=== PATIENT | male | born 1955 | race Caucasian/White ===

== ENCOUNTER 2016-08-09 04:03 | Observation (INO) | payer BC ==
[2016-08-09 04:34] LABS: Basophils % (A) 0 %; CH 31.5; CHCM 33.2; Eosinophils # (A) 0.2 k/uL (0-0.7); Eosinophils % (A) 3 %; HCT 48.1 % (39.0-53.0); HDW 2.29; HGB 15.6 gm/dL (13.0-17.5); Luc # (Auto) 0.24; Luc % (Auto) 4; Lymphocytes # (A) 1.9 k/uL (1.0-4.8); Lymphocytes % (A) 29 %; MCHC 32.5 g/dL (31.0-37.0); MCV 95.3 fL (80.0-100.0); Mean Platelet Volume 8.5; Monocytes # (A) 0.5 k/uL (0-1.0); Monocytes % (A) 8 %; Neutrophils # (A) 3.7 k/uL (1.3-7.7); Neutrophils % (A) 56 %; RBC 5.04 m/uL (4.30-5.90); RDW 12.6 % (11.5-15.5); WBC 6.6 k/uL (3.8-10.6); WBC (Perox) 6.63
[2016-08-09 04:43] LABS: ALT 29 U/L (21-72); AST 28 U/L (17-59); Alkaline Phosphatase 93 U/L (38-126); Anion Gap 11 mmol/L; Blood Urea Nitrogen 18 mg/dL (9-20); Calcium 10.1 mg/dL (8.4-10.2); Carbon Dioxide 26 mmol/L (22-30); Chloride 105 mmol/L (98-107); Glucose 85 mg/dL (74-99); Magnesium 2.1 mg/dL (1.6-2.3); Non-African American GFR(MDRD) >60 (>60 ml/min/1.73 sqM); Potassium 4.7 mmol/L (3.5-5.1); Sodium 142 mmol/L (137-145); Total Bilirubin 0.6 mg/dL (0.2-1.3); Total Protein 7.6 g/dL (6.3-8.2)
--- NOTE | 2016-08-09 05:23 | XR ---
EXAM: XR Chest, 1 View. CLINICAL HISTORY: Chest pain. TECHNIQUE: Frontal view of the chest. COMPARISON: Chest radiograph dated 10/09/14. FINDINGS: Limitations: The left costophrenic angle is incompletely imaged. Lungs: No airspace consolidation. There is improved aeration at the left lung base. Pleural space: No significant pleural effusion. No pneumothorax. Heart: Normal cardiac silhouette. Bones/joints: Thoracic scoliosis. Degenerative changes at the left acromioclavicular joint. IMPRESSION: No acute abnormality detected.
[2016-08-09] MEDS ORDERED: NITROGLYCERIN SL TABS 0.4 MG TAB SUBLINGUAL PRN (06:27)
--- NOTE | 2016-08-09 06:27 | ED ---
Chest Pain HPI - General Chief Complaint: Chest Pain Stated Complaint: chest/abd pain Time Seen by Provider: 08/09/16 04:15 Source: patient, family Mode of arrival: ambulatory Limitations: no limitations - History of Present Illness Initial Comments: This patient is 61-year-old man who presents to be evaluated for left-sided chest pain that has been going on since approximately 10 PM. The patient states he was at rest when it started. The pain is constant, aching, and he has not noticed any worsening or relieving factors. He is currently moderate intensity. Patient denies any associated symptoms. He does note that he has had similar pains intermittently going back maybe up to 10 years. Patient states that he did have a heart catheterization but this was he believes 10-15 years ago. MD Complaint: chest pain Onset/Timin -: hour(s) Onset: during rest Pain Location: left chest Pain Radiation: none Severity: moderate Quality: aching Consistency: intermittent Improves With: nothing Worsens With: nothing Treatments Prior to Arrival: none - Related Data Home Medications Medication Instructions Recorded Confirmed No Known Home Medications [No 08/09/16 08/09/16 Known Home Medications] Allergies Allergy/AdvReac Type Severity Reaction Status Date / Time No Known Allergies Allergy Verified 08/09/16 04:09 Review of Systems ROS Statement: Those systems with pertinent positive or pertinent negative responses have been documented in the HPI. ROS Other: All systems not noted in ROS Statement are negative. Constitutional: Denies: fever, chills Respiratory: Denies: cough, dyspnea, hemoptysis Cardiovascular: Reports: chest pain. Denies: palpitations, dyspnea on exertion , orthopnea, edema, syncope Gastrointestinal: Denies: abdominal pain, vomiting Genitourinary: Denies: dysuria Musculoskeletal: Denies: back pain Skin: Denies: rash Neurological: Denies: headache EKG Findings - EKG Results: EKG: interpreted by ERMD, sinus rhythm, normal axis, normal QRS, normal ST/T, no acute changes EKG shows: bradycardia (Rate approximately 57 bpm) Past Medical History Past Medical History: Sleep Apnea/CPAP/BIPAP History of Any Multi-Drug Resistant Organisms: None Reported Past Surgical History: Appendectomy Additional Past Surgical History / Comment(s): Irregular Heart rate, Past Psychological History: No Psychological Hx Reported Smoking Status: Never smoker Past Alcohol Use History: Occasional Past Drug Use History: None Reported General Exam Limitations: no limitations General appearance: alert, in no apparent distress Head exam: Present: atraumatic, normocephalic, normal inspection Eye exam: Present: normal appearance. Absent: scleral icterus, conjunctival injection Neck exam: Present: normal inspection Respiratory exam: Present: normal lung sounds bilaterally. Absent: respiratory distress, wheezes, rales, rhonchi, chest wall tenderness, accessory muscle use, decreased breath sounds, prolonged expiratory Cardiovascular Exam: Present: regular rate, normal rhythm, normal heart sounds. Absent: systolic murmur, diastolic murmur, rubs, gallop GI/Abdominal exam: Present: soft. Absent: distended, tenderness, guarding, rebound Extremities exam: Present: normal inspection, normal capillary refill. Absent: pedal edema, calf tenderness Back exam: Absent: CVA tenderness (R), CVA tenderness (L) Skin exam: Present: warm, dry, intact, normal color. Absent: rash Course Vital Signs 08/09/16 08/09/16 08/09/16 04:05 04:09 04:45 Temperature 97.5 F L Pulse Rate 61 63 59 L Respiratory 20 18 18 Rate Blood Pressure 140/92 136/86 122/75 O2 Sat by Pulse 97 99 99 Oximetry 08/09/16 05:45 Temperature Pulse Rate 62 Respiratory 18 Rate Blood Pressure 123/80 O2 Sat by Pulse 99 Oximetry Disposition Clinical Impression: Chest pain Disposition: ADMITTED IP TO THIS [facility] Condition: Good Referrals: Elias Christian MD [Primary Care Provider] - 1-2 days
[2016-08-09 08:32] VITALS: RESP 16
--- NOTE | 2016-08-09 10:42 | CONS ---
DATE OF CONSULTATION: Mr. Preston is a 61-year-old gentleman who is admitted with the complaint of chest pain. Patient gives a history that after the dinner yesterday, he had mild chest discomfort in the left anterior part of the chest. It was kind of aching pain, lasting only for a few minutes. Pain was not associated with any symptoms of shortness of breath. Patient subsequently came to the emergency room and is admitted. This patient usually walks 3 to 4 miles every day for 4 days a week. He has not been having any exertional chest pain. He had a cardiac catheterization done about 15 years ago which was normal. Patient has a borderline hypertension. There is no history of diabetes. He does not know about his cholesterol and the patient does not smoke. Past medical history includes history of appendectomy, history of cardiac catheterization in the past and history of irregular heartbeat. The review of systems is otherwise unremarkable. Physical examination reveals a 61-year-old gentleman who is thinly built, does not appear to be in any acute distress. Blood pressure is 137-83 mmHg. HEENT examination is negative. Neck is supple. There is no increase in jugular venous pressure. Both the carotid pulses are felt. There is no bruit. Chest is symmetrical. HEART: The PMI is not felt. First and second heart sounds are normal. There is no evidence of any murmur. Lungs are clinically clear to auscultation and percussion. Abdomen is soft. Liver and spleen are not enlarged. Bowel sounds are heard. EXTREMITIES: Peripheral pulsations are 2+. EKG shows a normal sinus rhythm without any acute ischemic changes. First set of troponin is normal. FINAL IMPRESSION: This patient's chest pains are atypical pain, two EKGs are normal. We will repeat the second troponin. If the troponin is normal, we will schedule the patient for a stress echocardiographic study.
[2016-08-09 11:28] LABS: Creatine Kinase 67 U/L (55-170)
[2016-08-09 11:41] LABS: Creatine Kinase MB 0.3 ng/mL (0.0-2.4); Troponin I <0.012 ng/mL (0.000-0.034)
--- NOTE | 2016-08-09 14:34 | ECHOS ---
DATE OF SERVICE: 08/09/2016 AGE: 61Y SEX: M HT: 72" WT: 192 lbs. Protocol Prudencio: X Others: Stress Echo Stage: IV Dur. of Exercise: 9:53 *Heart Rate Blood Pressure *Rest: 79 Rest: 131/46 * *Max. Achieved: 140 Maximum BP: 137/65 85% PMHR: 134 100% PMHR: 158 *METS: 11.3 INDICATIONS: Chest pain. MEDICATIONS: Aspirin 81 mg. The patient was exercised for a total period of 9 minutes and 53 seconds. Peak heart rate of 140 was achieved. Maximum blood pressure of 137/65 mmHg was noted. Resting EKG shows normal sinus rhythm with normal MO interval and QRS duration and normal ST-T waves. During exercise, J-point depression with upsloping ST segments were noted. Occasional PVCs were noted. The baseline echocardiographic images reveal a normal left ventricular chamber size with normal left ventricular systolic function. In the immediate postexercise period, normal increase in the wall thickness and contractility is noted. FINAL IMPRESSION: 1. This stress echocardiographic study is negative for stress-induced ischemia. 2. Occasional premature ventricular contractions are noted. 3. Exercise tolerance is normal.
--- NOTE | 2016-08-09 14:57 | HP ---
HISTORY AND PHYSICAL/DISCHARGE SUMMARY: DATE OF ADMISSION: Patient is a 61-year-old came in with left-sided chest pain that started yesterday evening at 10 p.m. Patient's chest pain is nonexertional. About 1/20 in severity in the epigastric area and retrosternal area. Pressure-like sensation, no radiation, not associated with diaphoresis. No nausea, no lightheadedness, no shortness of breath. Patient denied any palpitations and patient denied any lightheadedness, diaphoresis. Patient denied any fever, chills, cough, runny nose. Patient denied any cough at this point of time and patient's chest pain has completely resolved and this pain normally last 10 minutes. This started when he was eating and otherwise, patient has on and off of this pain, normally no with food and patient's chest pain is nonpleuritic in nature. REVIEW OF SYSTEMS: CARDIOVASCULAR: As described in HPI. CONSTITUTIONAL: No fever, no malaise, no fatigue. HEENT: No recent visual problems or hearing problems. Denied any sore throat. PULMONARY: No shortness of breath, no cough, no hemoptysis. GASTROINTESTINAL: No diarrhea, no nausea, no vomiting, no abdominal pain. Normoactive bowel sounds. NEUROLOGICAL: No headaches, no weakness, no numbness. HEMATOLOGICAL: Denies any bleeding or petechiae. GENITOURINARY: Denies any burning micturition, frequency, or urgency. MUSCULOSKELETAL/RHEUMATOLOGICAL: Denies any joint pain, swelling, or any muscle pain. ENDOCRINE: Denies any polyuria or polydipsia. The rest of the 14 point review of systems is negative. PAST MEDICAL HISTORY: Significant for sleep apnea. Patient is only uses aspirin at home. Appendectomy in the past. SOCIAL HISTORY: Denied any smoking, alcohol abuse or any drug abuse. FAMILY HISTORY: Denied any family history of premature coronary artery disease. Family history is significant for dementia and his father at age 90. PHYSICAL EXAMINATION: Temperature 98.5, pulse of 66, respiratory rate of 16, blood pressure is 119/70. Saturating at 99% on 2 L of O2 nasal cannula. GENERAL: The patient is alert and oriented x3, not in any acute distress. Well developed, well nourished. HEENT: Pupils are round and equally reacting to light. EOMI. No scleral icterus. No conjunctival pallor. Normocephalic, atraumatic. No pharyngeal erythema. No thyromegaly. CARDIOVASCULAR: S1 and S2 present. No murmurs, rubs, or gallops. PULMONARY: Chest is clear to auscultation, no wheezing or crackles. ABDOMEN: Soft, nontender, nondistended, normoactive bowel sounds. No palpable organomegaly. MUSCULOSKELETAL: No joint swelling or deformity. EXTREMITIES: No cyanosis, clubbing, or pedal edema. NEUROLOGICAL: Gross neurological examination did not reveal any focal deficits. SKIN: No rashes. LABORATORY DATA: CBC, CMP essentially within normal limits and d-dimer is negative. ASSESSMENT AND PLAN: 1. Chest pain, atypical in nature. Patient was evaluated by Cardiology. EKG and troponins are negative. A chest x-ray did not show any pneumonic process. Patient is admitted for rule out unstable angina and Cardiology is recommending stress test. After stress test if it is negative, patient will be discharged. I cannot completely rule out gastritis because of which I am giving him 14 days of empiric omeprazole. 2. Sleep apnea. He can use his CPAP machine at home and patient will follow with his primary care physician, Dr. Elias Christian in 3 to 7 days. Activity as tolerated. Regular diet.
[2016-08-09 15:22] VITALS: BP 127/67; PULSE 76; TEMP 98
[2016-08-10] MEDS ORDERED: ASPIRIN 325 MG TAB PO SCH (09:00)
--- NOTE | 2016-08-15 16:05 | ECHOF ---
Referral Reason:chest pain MEASUREMENTS -------- HEIGHT: 182.9 cm WEIGHT: 87.1 kg BP: 119/74 RVIDd: 3.0 cm (< 3.3) IVSd: 1.3 cm (0.6 - 1.1) LVIDd: 4.3 cm (3.9 - 5.3) LVPWd: 1.3 cm (0.6 - 1.1) IVSs: 1.9 cm LVIDs: 3.3 cm LVPWs: 2.0 cm LA Diam: 3.5 cm (2.7 - 3.8) LAESV Index (A-L): 12.67 ml/m Ao Diam: 3.6 cm (2.0 - 3.7) AV Cusp: 2.5 cm (1.5 - 2.6) MV EXCURSION: 21.866 mm (> 18.000) MV EF SLOPE: 105 mm/s (70 - 150) EPSS: 0.2 cm MV E Fawad: 0.53 m/s MV DecT: 299 ms MV A Fawad: 0.54 m/s MV E/A Ratio: 0.99 RAP: 5.00 mmHg RVSP: 22.99 mmHg FINDINGS -------- Sinus rhythm. This was a technically good study. The left ventricular size is normal. There is mild concentric left ventricular hypertrophy. Overall left ventricular systolic function is normal with, an EF between 60 - 65 %. The right ventricle is normal in size. Normal LA size by volume 22+/-6 ml/m2. The right atrium is normal in size. The aortic valve is trileaflet and appears structurally normal. Mild mitral regurgitation is present. Trace tricuspid regurgitation present. The pulmonic valve is normal. There is no pulmonic regurgitation present. The aortic root size is normal. Normal inferior vena cava with normal inspiratory collapse consistent with estimated right atrial pressure of 5 mmHg. There is no pericardial effusion. CONCLUSIONS -------- 1. Sinus rhythm. 2. Trace tricuspid regurgitation present. 3. The pulmonic valve is normal. 4. The aortic root size is normal. 5. Normal inferior vena cava with normal inspiratory collapse consistent with estimated right atrial pressure of 5 mmHg. 6. There is no pericardial effusion. 7. This was a technically good study. 8. The left ventricular size is normal. 9. There is mild concentric left ventricular hypertrophy. 10. Overall left ventricular systolic function is normal with, an EF between 60 - 65 %. 11. The right ventricle is normal in size. 12. Normal LA size by volume 22+/-6 ml/m2. 13. The aortic valve is trileaflet and appears structurally normal. 14. Mild mitral regurgitation is present. CRISIS WORKER: Stephie Oliveira RDCS
== END 2016-08-09 15:30 | disposition home or self-care (01) ==
LOC: EC 04:03 → 3OBS 06:27
PROVIDERS: ADMIT Hospitalist; ATTEND Hospitalist
DX: R07.89 Other chest pain (principal); R10.9 Unspecified abdominal pain; G47.30 Sleep apnea, unspecified; Z99.89 Dependence on other enabling machines and devices; Z79.82 Long term (current) use of aspirin; Z90.49 Acquired absence of other specified parts of digestive tract
CPT/HCPCS: 36415; 93005; 93017; 93306; 93350; 85379; 80053; 82550; 82553; 83735; 84484; 85025; 71010; 99285; G0378

== ENCOUNTER 2017-12-07 13:20 | Emergency (ER) | payer BC ==
[2017-12-07 13:29] VITALS: TEMP 98.3
[2017-12-07] MEDS ORDERED: MORPHINE SULFATE 2 MG/ML SYRINGE IVP STA (13:46)
[2017-12-07] MEDS ORDERED: NITROGLYCERIN OINT 1 INCH/GM PACKET TOPICAL STA (13:46)
[2017-12-07] MEDS ORDERED: ASPIRIN 81 MG PO STA (13:46)
[2017-12-07 14:30] LABS: Basophils % (A) 0 %; Eosinophils # (A) 0.1 k/uL (0-0.7); Eosinophils % (A) 1 %; HCT 44.4 % (39.0-53.0); HGB 14.8 gm/dL (13.0-17.5); Lymphocytes # (A) 1.3 k/uL (1.0-4.8); Lymphocytes % (A) 14 %; MCH 31.8 pg (25.0-35.0); MCHC 33.3 g/dL (31.0-37.0); MCV 95.6 fL (80.0-100.0); Mean Platelet Volume 7.9; Monocytes # (A) 0.6 k/uL (0-1.0); Monocytes % (A) 6 %; Neutrophils # (A) 7.2 k/uL (1.3-7.7); Neutrophils % (A) 78 %; Platelet Count 196 k/uL (150-450); RBC 4.65 m/uL (4.30-5.90); RDW 12.6 % (11.5-15.5); WBC 9.3 k/uL (3.8-10.6)
[2017-12-07 14:42] LABS: ALT 43 U/L (21-72); AST 31 U/L (17-59); Albumin 3.7 g/dL (3.5-5.0); Alkaline Phosphatase 85 U/L (38-126); Anion Gap 10 mmol/L; Blood Urea Nitrogen 21 mg/dL (9-20); Calcium 9.2 mg/dL (8.4-10.2); Carbon Dioxide 22 mmol/L (22-30); Chloride 107 mmol/L (98-107); Glucose 102 mg/dL (74-99); Sodium 139 mmol/L (137-145); Total Bilirubin 0.6 mg/dL (0.2-1.3); Total Protein 6.6 g/dL (6.3-8.2)
[2017-12-07 14:48] LABS: Creatine Kinase 85 U/L (55-170)
[2017-12-07 14:50] VITALS: RESP 18
[2017-12-07 14:51] LABS: D-Dimer 0.37 mg/L FEU (<0.60); INR 1.2 (<1.2); Partial Thromboplastin Time 26.9 sec (22.0-30.0); Prothrombin Time 11.2 sec (9.0-12.0)
[2017-12-07 15:01] LABS: Creatine Kinase MB 0.5 ng/mL (0.0-2.4); Troponin I <0.012 ng/mL (0.000-0.034)
--- NOTE | 2017-12-07 15:16 | XR ---
EXAMINATION TYPE: XR chest 2V DATE OF EXAM: 12/07/2017 COMPARISON: Prior chest 08/09/2016 HISTORY: Chest pain TECHNIQUE: Frontal and lateral views of the chest are obtained. FINDINGS: There is no focal air space opacity, pleural effusion, or pneumothorax seen. The cardiac silhouette size is within normal limits. There are overlying cardiac leads. There is a spinal curvatu re. The osseous structures are intact. IMPRESSION: No acute cardiopulmonary process.
--- NOTE | 2017-12-07 16:41 | ED ---
Chest Pain HPI - General Chief Complaint: Chest Pain Stated Complaint: Chest tightness Time Seen by Provider: 12/07/17 13:42 Source: patient Mode of arrival: wheelchair Limitations: no limitations - History of Present Illness Initial Comments: 62 years old male comes in with the chest pain ongoing for 2 days he feels that tightness he said he gets worse with a deep breaths also feels his stomach is bloated he had some alcohol last night he fell bit dizzy and short winded. He denies any headaches no neck stiffness no abdominal pain has some abdominal bloating no frequency urgency dysuria no symptoms of TIA or CVA - Related Data Previous Rx's Medication Instructions Recorded Omeprazole 20 mg PO DAILY #30 tablet. 12/07/17 Allergies Allergy/AdvReac Type Severity Reaction Status Date / Time No Known Allergies Allergy Verified 12/07/17 13:59 Review of Systems ROS Statement: Those systems with pertinent positive or pertinent negative responses have been documented in the HPI. ROS Other: All systems not noted in ROS Statement are negative. EKG Findings - EKG Comments: EKG Findings:: ALLERGIES normal sinus ventricular rate is 70 CA interval is 162 QRS duration is 80 QT/QTc is 390/425 review of this EKG does not reveal any ST elevation or ST depression Past Medical History Past Medical History: Sleep Apnea/CPAP/BIPAP Additional Past Medical History / Comment(s): Pt believes he has ASTER-no device, irregular heart beat at times, R knee pain and "feels like it is going out at times". History of Any Multi-Drug Resistant Organisms: None Reported Past Surgical History: Appendectomy Additional Past Surgical History / Comment(s): 15-20 yrs ago pt states he had a cardiac cath which was normal (cannot recall where this was done), colonoscopy- normal. Past Anesthesia/Blood Transfusion Reactions: No Reported Reaction Past Psychological History: No Psychological Hx Reported Smoking Status: Never smoker - Past Family History Father Family Medical History: Dementia Additional Family Medical History / Comment(s): Father at the age of 90yrs. Mother Family Medical History: Hypertension Additional Family Medical History / Comment(s): Irregular heart beat. Mother at the age of 89yrs. General Exam Limitations: no limitations Course Vital Signs 12/07/17 12/07/17 12/07/17 13:27 14:49 15:33 Temperature 98.3 F Pulse Rate 74 69 65 Respiratory 20 18 18 Rate Blood Pressure 108/70 118/67 111/66 O2 Sat by Pulse 96 95 98 Oximetry Upon reassessment patient said he feels bloated in the abdomen is concerned about diverticulitis exam of the abdomen was quite unremarkable bowel sounds are positive no guarding no rebounds no signs of peritonitis is bit tender in epigastric area and right upper quadrant area his LFTs are within normal range d -dimer is unremarkable white count is normal troponin is fine and EKG is normal , chest x-ray is unremarkable considering is a 62 years old and the chest pain and recommended that we admit him for observation with a cardiology consult. Patient stated that he feels fine he would follow with the cardiology as outpatient and prescribed omeprazole 20 mg once daily #30 for is some abdominal discomfort/GERD - Reevaluation(s) Reevaluation #2: He was advised to return to the ER if his symptoms get worse and he agreed that he will call [facility]ology [facility] for sick in the morning 12/07/17 17:02 Disposition Clinical Impression: Chest tightness, Chest pressure, Abdominal discomfort, GERD (gastroesophageal reflux disease) Disposition: HOME SELF-CARE Condition: Good Instructions: Chest Pain (ED) Prescriptions: Omeprazole 20 mg PO DAILY #30 tablet. Is patient prescribed a controlled substance at d/c from ED?: No Referrals: Elisa Christian MD [Primary Care Provider] - 1-2 days Mark Morse MD [STAFF PHYSICIAN] - 1-2 days
[2017-12-07 17:33] VITALS: BP 107/63; PULSE 63
== END 2017-12-07 17:32 | disposition home or self-care (01) ==
LOC: EC 13:20
DX: K21.9 Gastro-esophageal reflux disease without esophagitis (principal); R10.32 Left lower quadrant pain; Z90.49 Acquired absence of other specified parts of digestive tract; Z82.49 Family history of ischemic heart disease and other diseases of the circulatory system; Z53.20 Procedure and treatment not carried out because of patient's decision for unspecified reasons
CPT/HCPCS: 36415; 71046; 80053; 82550; 82553; 83735; 84484; 85025; 85379; 85610; 85730; 93005; 99285

== ENCOUNTER 2017-12-29 22:17 | Emergency (ER) | payer BC ==
[2017-12-29] MEDS ORDERED: MORPHINE SULFATE 4 MG/ML SYRINGE IV STA (23:06)
[2017-12-29] MEDS ORDERED: ONDANSETRON 4 MG/2 ML VIAL IVP STA (23:06)
[2017-12-29] MEDS ORDERED: SODIUM CHLORIDE 0.9% 1,000 ML IV STA (23:06)
[2017-12-29 23:36] LABS: Basophils % (A) 0 %; Eosinophils # (A) 0.1 k/uL (0-0.7); Eosinophils % (A) 1 %; HCT 46.1 % (39.0-53.0); HGB 14.7 gm/dL (13.0-17.5); Lymphocytes # (A) 1.4 k/uL (1.0-4.8); Lymphocytes % (A) 13 %; MCH 30.3 pg (25.0-35.0); MCHC 31.8 g/dL (31.0-37.0); MCV 95.2 fL (80.0-100.0); Mean Platelet Volume 8.3; Monocytes # (A) 0.6 k/uL (0-1.0); Monocytes % (A) 6 %; Neutrophils # (A) 8.2 k/uL (1.3-7.7); Neutrophils % (A) 78 %; Platelet Count 191 k/uL (150-450); RBC 4.84 m/uL (4.30-5.90); RDW 12.3 % (11.5-15.5); WBC 10.5 k/uL (3.8-10.6)
[2017-12-29 23:47] LABS: Albumin 4.2 g/dL (3.5-5.0); Calcium 9.3 mg/dL (8.4-10.2); Total Bilirubin 0.7 mg/dL (0.2-1.3); Total Protein 7.3 g/dL (6.3-8.2)
[2017-12-30 00:14] VITALS: RESP 18
--- NOTE | 2017-12-30 00:52 | CT ---
EXAMINATION TYPE: CT abdomen pelvis wo con DATE OF EXAM: 12/30/2017 COMPARISON: 08/28/2015 HISTORY: Nausea and vomiting CT DLP: mGycm Automated exposure control for dose reduction was used. TECHNIQUE: Helical acquisition of images was performed from the lung bases through the pelvis. FINDINGS: Lung bases are clear. There is no pleural effusion. Liver spleen pancreas appear normal. Gallbladder appears normal. Bile ducts are not dilated. There is right-sided perinephric edema and right-sided hydronephrosis. There is 3 mm calculus in the distal right ureter. Bladder is almost empty. There is no pelvic mass. There is small left-sided pros adam calcification. There is no ascites. There is no intestinal wall thickening. There are no dilated loops. There is no sign of appendicitis. I see no calculi within the right kidney. There is a 3 mm c alculus in the lower pole left kidney. 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 This appears stable. IMPRESSION: RIGHT-SIDED HYDRONEPHROSIS AND HYDROURETER WITH OBSTRUCTING CALCULUS AT THE RIGHT URETERAL VESICLE JU NCTION. THIS IS NEW COMPARED TO OLD EXAM. NONOBSTRUCTING SMALL LEFT RENAL CALCULUS IS STABLE.
[2017-12-30] MEDS ORDERED: ACET/COD 300 MG/30 MG STARTER PACK 6 TAB BTL PO STA (00:56)
[2017-12-30] MEDS ORDERED: TAMSULOSIN 0.4 MG CAP.ER.24H PO STA (00:56)
[2017-12-30] MEDS ORDERED: IBUPROFEN 600 MG STARTER PACK 4 TAB BTL PO STA (00:56)
[2017-12-30] MEDS ORDERED: ONDANSETRON 4 MG ODT STARTER PACK 2 TAB BTL PO STA (00:56)
[2017-12-30] MEDS ORDERED: KETOROLAC 30 MG/ML 1 ML VIAL IVP STA (00:56)
--- NOTE | 2017-12-30 01:04 | ED ---
Abdominal Pain HPI - General Chief Complaint: Abdominal Pain Stated Complaint: Abd pain Time Seen by Provider: 12/29/17 22:51 Source: patient Mode of arrival: ambulatory - History of Present Illness Initial Comments: 62-year-old male patient presents to the emergency department today for evaluation of right lower quadrant abdominal pain that radiates into his back. Patient states that he has had this pain intermittently for the last several days, he believed he may have been constipated. Patient states that today the pain returned and became worse. Describes the pain as a sharp stabbing pain. He denies any fevers or chills with this. He denies any hematuria, dysuria, urinary frequency, urinary urgency. He denies any nausea, vomiting or diarrhea. Denies any history of similar pain. Has had an appendectomy. Patient denies any recent rash, shortness breath, chest pain, back pain, numbness, tingling, dizziness, weakness, headache, visual changes, or any other complaints. - Related Data Home Medications Medication Instructions Recorded Confirmed Bisacodyl [Dulcolax] 10 mg PO ONCE PRN 12/29/17 12/29/17 Previous Rx's Medication Instructions Recorded Hydrocodone/Acetaminophen [Jolley 1 tab PO Q6HR PRN #12 tab 12/30/17 5-325] Ibuprofen [Motrin] 600 mg PO Q8HR PRN #30 tab 12/30/17 Ondansetron [Zofran ODT] 4 mg PO Q8HR PRN #10 tab 12/30/17 Tamsulosin HCl [Flomax] 0.4 mg PO DAILY #7 cap 12/30/17 Allergies Allergy/AdvReac Type Severity Reaction Status Date / Time No Known Allergies Allergy Verified 12/29/17 23:01 Review of Systems ROS Statement: Those systems with pertinent positive or pertinent negative responses have been documented in the HPI. ROS Other: All systems not noted in ROS Statement are negative. Past Medical History Past Medical History: Sleep Apnea/CPAP/BIPAP Additional Past Medical History / Comment(s): Pt believes he has ASTER-no device, irregular heart beat at times, R knee pain and "feels like it is going out at times". Diverticulitis History of Any Multi-Drug Resistant Organisms: None Reported Past Surgical History: Appendectomy Additional Past Surgical History / Comment(s): 15-20 yrs ago pt states he had a cardiac cath which was normal (cannot recall where this was done), colonoscopy- normal. Past Anesthesia/Blood Transfusion Reactions: No Reported Reaction Past Psychological History: No Psychological Hx Reported Smoking Status: Never smoker Past Alcohol Use History: Occasional Past Drug Use History: None Reported - Past Family History Father Family Medical History: Dementia Additional Family Medical History / Comment(s): Father at the age of 90yrs. Mother Family Medical History: Hypertension Additional Family Medical History / Comment(s): Irregular heart beat. Mother at the age of 89yrs. General Exam General appearance: alert, in no apparent distress, other (The well-developed, well-nourished adult male patient in no acute distress. Vital signs upon presentation are temperature 97.7F, pulse 65, respirations 22, blood pressure 160/90, pulse ox 100% on room air.) Eye exam: Present: normal appearance, PERRL, EOMI. Absent: scleral icterus, conjunctival injection, periorbital swelling ENT exam: Present: normal exam, normal oropharynx, mucous membranes moist Respiratory exam: Present: normal lung sounds bilaterally. Absent: respiratory distress, wheezes, rales, rhonchi, stridor Cardiovascular Exam: Present: regular rate, normal rhythm, normal heart sounds. Absent: systolic murmur, diastolic murmur, rubs, gallop, clicks GI/Abdominal exam: Present: soft, normal bowel sounds. Absent: distended, tenderness, guarding, rebound, rigid Back exam: Absent: CVA tenderness (R), CVA tenderness (L) Neurological exam: Present: alert, oriented X3, CN II-XII intact Psychiatric exam: Present: normal affect, normal mood Skin exam: Present: warm, dry, intact, normal color. Absent: rash Course Vital Signs 12/29/17 12/30/17 12/30/17 22:44 00:12 02:26 Temperature 97.7 F 97.9 F Pulse Rate 65 69 67 Respiratory 22 18 18 Rate Blood Pressure 160/90 142/73 123/67 O2 Sat by Pulse 100 97 98 Oximetry Medical Decision Making - Medical Decision Making 62-year-old male patient presented to the emergency department today for evaluation of right flank pain with radiation into the abdomen. Physical examination did reveal some mild right lower quadrant tenderness. Labs reviewed and are relatively unremarkable. We did obtain CT of the abdomen and pelvis without contrast which did show an obstructing stone at the right UVJ. Patient was given medications for his symptoms. He is feeling better prior to discharge. He is instructed to follow-up with urology. Return parameters discussed in detail. He verbalizes understanding and agrees with this plan. - Lab Data Result diagrams: 12/29/17 23:15 12/29/17 23:15 Lab Results 12/29/17 12/29/17 12/30/17 Range/Units 23:15 23:15 01:07 WBC 10.5 (3.8-10.6) k/uL RBC 4.84 (4.30-5.90) m/uL Hgb 14.7 (13.0-17.5) gm/dL Hct 46.1 (39.0-53.0) % MCV 95.2 (80.0-100.0) fL MCH 30.3 (25.0-35.0) pg MCHC 31.8 (31.0-37.0) g/dL RDW 12.3 (11.5-15.5) % Plt Count 191 (150-450) k/uL Neutrophils % 78 % Lymphocytes % 13 % Monocytes % 6 % Eosinophils % 1 % Basophils % 0 % Neutrophils # 8.2 H (1.3-7.7) k/uL Lymphocytes # 1.4 (1.0-4.8) k/uL Monocytes # 0.6 (0-1.0) k/uL Eosinophils # 0.1 (0-0.7) k/uL Basophils # 0.0 (0-0.2) k/uL Sodium 138 (137-145) mmol/L Potassium 4.0 (3.5-5.1) mmol/L Chloride 107 (98-107) mmol/L Carbon Dioxide 21 L (22-30) mmol/L Anion Gap 10 mmol/L BUN 17 (9-20) mg/dL Creatinine 1.10 (0.66-1.25) mg/dL Est GFR (CKD-EPI)AfAm 82 (>60 ml/min/1.73 sqM) Est GFR (CKD-EPI)NonAf 71 (>60 ml/min/1.73 sqM) Glucose 94 (74-99) mg/dL Calcium 9.3 (8.4-10.2) mg/dL Total Bilirubin 0.7 (0.2-1.3) mg/dL AST 26 (17-59) U/L ALT 36 (21-72) U/L Alkaline Phosphatase 97 (38-126) U/L Total Protein 7.3 (6.3-8.2) g/dL Albumin 4.2 (3.5-5.0) g/dL Amylase 52 (30-110) U/L Lipase 126 (23-300) U/L Urine Color Yellow Urine Appearance Clear (Clear) Urine pH 5.0 (5.0-8.0) Ur Specific [place] 1.028 (1.001-1.035) Urine Protein Trace H (Negative) Urine Glucose (UA) Negative (Negative) Urine Ketones 1+ H (Negative) Urine Blood Moderate H (Negative) Urine Nitrite Negative (Negative) Urine Bilirubin Negative (Negative) Urine Urobilinogen <2.0 (<2.0) mg/dL Ur Leukocyte Esterase Negative (Negative) Urine RBC 35 H (0-5) /hpf Urine WBC 1 (0-5) /hpf Ur Squamous Epith Cells <1 (0-4) /hpf Calcium Oxalate Crystal Few H (None) /hpf Urine Bacteria Rare H (None) /hpf Hyaline Casts 10 H (0-2) /lpf Urine Mucus Few H (None) /hpf - EKG Data -: EKG Interpreted by Me EKG Comments: EKG obtained at 2318 shows normal sinus rhythm with a ventricular rate of 64, SC interval 150, QRS duration 82, QT 410, QTC 422. No evidence of ST elevation or depression. - Radiology Data Radiology results: report reviewed, image reviewed CT of the abdomen and pelvis without contrast was obtained. Report was reviewed in its entirety. Impression by Dr. Pearce shows right-sided hydronephrosis and hydroureter with obstructing calculus at the right ureteral vesicle junction. This is new compared to old exam. Nonobstructing small left renal calculus is stable. Disposition Clinical Impression: Right kidney stone Disposition: HOME SELF-CARE Condition: Good Instructions: Kidney Stones (ED), How to Strain Your Urine (ED) Additional Instructions: Increase fluids especially water. Take medications as directed. Follow-up with urologist for further evaluation as soon as possible. Return here immediately for any new, worsening, or concerning symptoms. Prescriptions: Hydrocodone/Acetaminophen [Jolley 5-325] 1 tab PO Q6HR PRN #12 tab PRN Reason: Pain Ibuprofen [Motrin] 600 mg PO Q8HR PRN #30 tab PRN Reason: Pain Ondansetron [Zofran ODT] 4 mg PO Q8HR PRN #10 tab PRN Reason: Nausea Tamsulosin HCl [Flomax] 0.4 mg PO DAILY #7 cap Is patient prescribed a controlled substance at d/c from ED?: No Referrals: Elias Christian MD [Primary Care Provider] - 1-2 days Chapo Cobian MD [STAFF PHYSICIAN] - 1-2 days Time of Disposition: 02:02
[2017-12-30 01:24] LABS: Appearance,Urine Clear (Clear); Bacteria,Urine Rare /hpf; Bilirubin,Urine Negative (Negative); Blood,Urine Moderate (Negative); Calcium Oxalate Crystals,Urine Few /hpf; Color,Urine Yellow; Glucose,Urine (UA) Negative (Negative); Hyaline Casts,Urine 10 /lpf (0-2); Ketones,Urine 1+ (Negative); Leukocyte Esterase,Urine Negative (Negative); Mucus,Urine Few /hpf; Nitrite,Urine Negative (Negative); Protein,Urine Trace (Negative); RBC,Urine 35 /hpf (0-5); Specific Gravity,Urine 1.028 (1.001-1.035); Squamous Epithelial Cell,Urine <1 /hpf (0-4); Urobilinogen,Urine <2.0 mg/dL (<2.0); WBC,Urine 1 /hpf (0-5)
[2017-12-30 02:27] VITALS: BP 123/67; PULSE 67; TEMP 97.9
== END 2017-12-30 02:26 | disposition home or self-care (01) ==
LOC: EC 22:17
DX: N20.0 Calculus of kidney (principal); Z87.19 Personal history of other diseases of the digestive system; Z90.49 Acquired absence of other specified parts of digestive tract; Z98.890 Other specified postprocedural states
CPT/HCPCS: 36415; 93005; 80053; 82150; 83690; 85025; 81001; 74176; 99284; 96374; 96375 ×2; 96361; J2270; J2405; J1885; S0119

== ENCOUNTER 2018-10-30 07:10 | Observation (INO) | payer BC ==
[2018-10-30] MEDS ORDERED: SODIUM CHLORIDE 0.9% 500 ML 500 ML IV STA (07:42)
--- NOTE | 2018-10-30 07:46 | ED ---
General Adult HPI - General Chief complaint: Neuro Symptoms/Deficit Stated complaint: Headache/hard time swallowing Time Seen by Provider: 10/30/18 07:21 Source: patient Mode of arrival: ambulatory - History of Present Illness Initial comments: Dictation was produced using [employer] dictation software. please excuse any grammatical, word or spelling errors. Chief Complaint: 63-year-old malePast medical history presents with swallowing difficulties and mild posterior headache. History of Present Illness: He 3-year-old male. He states that 2 weeks ago in episode where he was at rest. He states that he felt some tightness towards his occipital head with radiation to the anterior forehead. Patient states that his symptoms went away for several weeks. He did however reports that he had persistent slight posterior head discomfort that has been persistent but tolerable. He had vision changes with squiggly lines seen in his bilateral temporal visual stevens. Patient currently denies any vision changes at the moment. Emesis being the worse headache of his life. Morning he was at home when he woke up with the symptoms. States that he was given a pill by his sister or his symptoms when he had difficulty swallowing. He states like it was stuck in his throat. Patient was able to swallow the pill. Denies any foreign body sensation. Patient has family history of CVA. Patient still continues to have this slight posterior headache. No nausea vomiting. Patient also feels slightly dizzy and having difficulty ambulating. Denies sensation of the room spinning. The ROS documented in this emergency department record has been reviewed and confirmed by me. Those systems with pertinent positive or negative responses have been documented in the HPI. All other systems are other negative and/or noncontributory. PHYSICAL EXAM: General Impression: Alert and oriented x3, not in acute distress HEENT: Normocephalic atraumatic, extra-ocular movements intact, pupils equal and reactive to light bilaterally, mucous membranes moist. Cardiovascular: Heart regular rate and rhythm, S1&S2 audible, no murmurs, rubs or gallops Chest: Lungs clear to auscultation bilaterally, no rhonchi, no wheeze, no rales Abdomen: Bowel sounds present, abdomen soft, non-tender, non-distended, no organomegaly Musculoskeletal: Pulses present and equal in all extremities, no peripheral edema Motor: no focal deficits noted Neurological: CN II-XII grossly intact, no focal motor or sensory deficits noted, not gait ataxia, no extremity ataxia Skin: Intact with no visualized rashes Psych: Normal affect and mood ED course: 63-year-old male presents with mild headache, episode of bilateral temporal vision changes, dizziness and swallowing difficulties. As upon arrival are within acceptable limits.His NIH is 0. Patient's clinical presentation does not represent cerebrovascular accident. CT angios the head and neck was obtained to evaluate for vertebrobasilar insufficiency. CT angiogram of the head and neck is unremarkable. CT brain is negative. Laboratory evaluation shows leukocytosis of 12.6 likely secondary to stress. Coag panel unremarkable. Metabolic panel is negative. Cardiac enzymes negative. Patient started on heparin for concerns of new onset A. fib. Patient be admitted. Discussed patient case with Dr. Lange who is willing to accept admission. Patient given aspirin. EKG interpretation: Ventricular rate 78, atrial fibrillation, QRS 70, QTC 426. No CO prolongation, no QTC prolongation, no ST or T-wave changes noted. New- onset atrial fibrillation - Related Data Home Medications Medication Instructions Recorded Confirmed No Known Home Medications 10/30/18 10/30/18 Allergies Allergy/AdvReac Type Severity Reaction Status Date / Time No Known Allergies Allergy Verified 10/30/18 07:42 Review of Systems ROS Statement: Those systems with pertinent positive or pertinent negative responses have been documented in the HPI. ROS Other: All systems not noted in ROS Statement are negative. Past Medical History Past Medical History: Sleep Apnea/CPAP/BIPAP Additional Past Medical History / Comment(s): Pt believes he has ASTER-no device, irregular heart beat at times, R knee pain and "feels like it is going out at times". Diverticulitis History of Any Multi-Drug Resistant Organisms: None Reported Past Surgical History: Appendectomy Additional Past Surgical History / Comment(s): 15-20 yrs ago pt states he had a cardiac cath which was normal (cannot recall where this was done), colonoscopy- normal. Past Anesthesia/Blood Transfusion Reactions: No Reported Reaction Past Psychological History: No Psychological Hx Reported Smoking Status: Never smoker Past Alcohol Use History: Occasional Past Drug Use History: None Reported - Past Family History Father Family Medical History: Dementia Additional Family Medical History / Comment(s): Father at the age of 90yrs. Mother Family Medical History: Hypertension Additional Family Medical History / Comment(s): Irregular heart beat. Mother at the age of 89yrs. Course Vital Signs 10/30/18 10/30/18 10/30/18 07:14 07:50 08:00 Temperature 98.3 F Pulse Rate 85 75 75 Respiratory 18 20 20 Rate Blood Pressure 133/87 120/82 O2 Sat by Pulse 98 96 96 Oximetry Medical Decision Making - Lab Data Result diagrams: 10/30/18 07:45 10/30/18 07:45 Lab Results 10/30/18 10/30/18 10/30/18 Range/Units 07:45 07:45 07:45 WBC 12.6 H (3.8-10.6) k/uL RBC 4.75 (4.30-5.90) m/uL Hgb 14.5 (13.0-17.5) gm/dL Hct 45.2 (39.0-53.0) % MCV 95.2 (80.0-100.0) fL MCH 30.6 (25.0-35.0) pg MCHC 32.2 (31.0-37.0) g/dL RDW 13.4 (11.5-15.5) % Plt Count 170 (150-450) k/uL Neutrophils % 87 % Lymphocytes % 6 % Monocytes % 6 % Eosinophils % 1 % Basophils % 0 % Neutrophils # 10.9 H (1.3-7.7) k/uL Lymphocytes # 0.7 L (1.0-4.8) k/uL Monocytes # 0.7 (0-1.0) k/uL Eosinophils # 0.1 (0-0.7) k/uL Basophils # 0.0 (0-0.2) k/uL PT 11.5 (9.0-12.0) sec INR 1.1 (<1.2) APTT 27.9 (22.0-30.0) sec Sodium 138 (137-145) mmol/L Potassium 4.7 (3.5-5.1) mmol/L Chloride 110 H (98-107) mmol/L Carbon Dioxide 22 (22-30) mmol/L Anion Gap 6 mmol/L BUN 18 (9-20) mg/dL Creatinine 1.12 (0.66-1.25) mg/dL Est GFR (CKD-EPI)AfAm 80 (>60 ml/min/1.73 sqM) Est GFR (CKD-EPI)NonAf 69 (>60 ml/min/1.73 sqM) Glucose 88 (74-99) mg/dL Calcium 8.9 (8.4-10.2) mg/dL Total Bilirubin 1.0 (0.2-1.3) mg/dL AST 36 (17-59) U/L ALT 38 (21-72) U/L Alkaline Phosphatase 88 (38-126) U/L Troponin I (0.000-0.034) ng/mL Total Protein 6.9 (6.3-8.2) g/dL Albumin 3.8 (3.5-5.0) g/dL 10/30/18 Range/Units 07:45 WBC (3.8-10.6) k/uL RBC (4.30-5.90) m/uL Hgb (13.0-17.5) gm/dL Hct (39.0-53.0) % MCV (80.0-100.0) fL MCH (25.0-35.0) pg MCHC (31.0-37.0) g/dL RDW (11.5-15.5) % Plt Count (150-450) k/uL Neutrophils % % Lymphocytes % % Monocytes % % Eosinophils % % Basophils % % Neutrophils # (1.3-7.7) k/uL Lymphocytes # (1.0-4.8) k/uL Monocytes # (0-1.0) k/uL Eosinophils # (0-0.7) k/uL Basophils # (0-0.2) k/uL PT (9.0-12.0) sec INR (<1.2) APTT (22.0-30.0) sec Sodium (137-145) mmol/L Potassium (3.5-5.1) mmol/L Chloride (98-107) mmol/L Carbon Dioxide (22-30) mmol/L Anion Gap mmol/L BUN (9-20) mg/dL Creatinine (0.66-1.25) mg/dL Est GFR (CKD-EPI)AfAm (>60 ml/min/1.73 sqM) Est GFR (CKD-EPI)NonAf (>60 ml/min/1.73 sqM) Glucose (74-99) mg/dL Calcium (8.4-10.2) mg/dL Total Bilirubin (0.2-1.3) mg/dL AST (17-59) U/L ALT (21-72) U/L Alkaline Phosphatase (38-126) U/L Troponin I <0.012 (0.000-0.034) ng/mL Total Protein (6.3-8.2) g/dL Albumin (3.5-5.0) g/dL Disposition Clinical Impression: New onset atrial fibrillation Disposition: ADMITTED IP TO THIS HOSP Condition: Fair Referrals: Elias Christian MD [Primary Care Provider] - 1-2 days Decision Time: 08:59
[2018-10-30 08:03] LABS: Basophils % (A) 0 %; Eosinophils # (A) 0.1 k/uL (0-0.7); Eosinophils % (A) 1 %; HCT 45.2 % (39.0-53.0); HGB 14.5 gm/dL (13.0-17.5); Lymphocytes # (A) 0.7 k/uL (1.0-4.8); Lymphocytes % (A) 6 %; MCH 30.6 pg (25.0-35.0); MCHC 32.2 g/dL (31.0-37.0); MCV 95.2 fL (80.0-100.0); Mean Platelet Volume 8.4; Monocytes # (A) 0.7 k/uL (0-1.0); Monocytes % (A) 6 %; Neutrophils # (A) 10.9 k/uL (1.3-7.7); Neutrophils % (A) 87 %; Platelet Count 170 k/uL (150-450); RBC 4.75 m/uL (4.30-5.90); RDW 13.4 % (11.5-15.5); WBC 12.6 k/uL (3.8-10.6)
[2018-10-30 08:11] LABS: INR 1.1 (<1.2); Partial Thromboplastin Time 27.9 sec (22.0-30.0); Prothrombin Time 11.5 sec (9.0-12.0)
--- NOTE | 2018-10-30 08:19 | XR ---
EXAMINATION TYPE: XR chest 2V DATE OF EXAM: 10/30/2018 COMPARISON: Prior chest x-ray 08/07/2018 HISTORY: Altered mental status TECHNIQUE: Frontal and lateral views of the chest are obtained. FINDINGS: There is no focal air space opacity, pleural effusion, or pneumothorax seen. The cardiac silhouette size is within normal limits. There is a spinal curvature. There are overlying cardiac jeanna ds. The osseous structures are intact. IMPRESSION: No acute cardiopulmonary process.
--- NOTE | 2018-10-30 08:21 | CT ---
EXAMINATION TYPE: CT brain wo con DATE OF EXAM: 10/30/2018 HISTORY: Difficulty with speech, DICKEY, visual changes, feels like something is caught in throat CT DLP: 2244 mGycm. Automated Exposure Control for Dose Reduction was Utilized. TECHNIQUE: CT scan of the head is performed without contrast. COMPARISON: None. FINDINGS: Repeat sequencing performed due to motion artifact degradation There is no acute intracran ial hemorrhage or midline shift identified. Ventricles and sulci are normal in size for patient's age . Yu-white matter differentiation is preserved. There is partial visualization of a 2.2 cm left max illary sinus posterior mucous retention cyst or polyp. Remainder paranasal sinuses are clear. Patchy soft tissue density felt to reflect cerumen bilateral external auditory canals is noted. The globes a re intact bilaterally. IMPRESSION: No acute intracranial hemorrhage or midline shift.
[2018-10-30 08:23] LABS: Albumin 3.8 g/dL (3.5-5.0); Calcium 8.9 mg/dL (8.4-10.2); Potassium 4.7 mmol/L (3.5-5.1); Total Protein 6.9 g/dL (6.3-8.2)
--- NOTE | 2018-10-30 08:43 | CT ---
EXAMINATION TYPE: CT angio head neck DATE OF EXAM: 10/30/2018 HISTORY: Difficulty with speech, DICKEY, visual changes, feels like something is caught in throat COMPARISON: NONE CT DLP: 434.4 mGycm. Automated Exposure Control for Dose Reduction was Utilized. TECHNIQUE: CTA scan of the head and neck are performed with IV Contrast, patient injected with 50 mL of Isovue 370, axial images are obtained, coronal and sagittal reformatted images are reviewed. Thre e-D reconstructed images are created on an independent workstation and reviewed. FINDINGS: Carotid/Vascular Structures: There is normal three-vessel origin from aortic arch. Right common carot id artery shows normal origin from the right brachiocephalic artery. There is mild calcified plaque i n the proximal right internal carotid artery shortly after carotid bulb. There is patent right manufacturing team member al carotid artery without significant plaque or stenosis. There is no additional significant plaque o r stenosis in the right common or internal carotid arteries including at level of carotid bulb. Left common carotid artery shows no significant plaque or stenosis including at level of left carotid bulb. There is patent left external carotid artery without significant plaque or stenosis. There is codominant vertebral basilar system. Vertebral arteries are patent to basilar junction. Ther e is no significant focal stenosis or aneurysmal change in the posterior circulation. Hypoplastic yadiel ateral posterior communicating arteries are present. Images of the anterior circulation show hypoplastic anterior communicating artery. There is no signif icant focal stenosis or aneurysmal change. Other: There is mild to moderate mucosal thickening inferior right maxillary sinus. There is mucous r etention cyst or polyp in the posterior left maxillary sinus. There is partial visualization of S-shaped scoliotic curvature involving the cervical thoracic spine. There is mild to moderate disc space narrowing and spurring C5-C6 and C6-C7 levels. IMPRESSION: 1. No significant focal stenosis in common or internal carotid arteries bilaterally. 2. No aneurysmal change or significant stenosis at the level of the [place] of [place].
[2018-10-30] MEDS ORDERED: HEPARIN SODIUM,PORCINE 5,000 UNIT/ML 1 ML VIAL IV PRN (08:49)
[2018-10-30] MEDS ORDERED: HEPARIN SODIUM,PORCINE 5,000 UNIT/ML 1 ML VIAL IV ONE (08:49)
[2018-10-30] MEDS ORDERED: ONDANSETRON 4 MG/2 ML VIAL IVP PRN (08:59)
[2018-10-30] MEDS ORDERED: ACETAMINOPHEN TAB 325 MG TAB PO PRN (08:59)
[2018-10-30] MEDS ORDERED: NALOXONE 0.4 MG/ML 1 ML VIAL IV PRN (08:59)
[2018-10-30] MEDS ORDERED: HEPARIN SOD,PORK IN 0.45% NACL 25,000 UNIT in 0.45% NACL 1 250ML.BAG IV SCH (09:00)
[2018-10-30] MEDS: SODIUM CHLORIDE 0.9% 1,000 ML IV SCH (09:49)
[2018-10-30] MEDS ORDERED: ASPIRIN 81 MG PO STA (13:41)
--- NOTE | 2018-10-30 13:57 | P.HPIM ---
History of Present Illness H&P Date: 10/30/18 Chief Complaint: Headache and slurred speech The patient is a 63-year-old male with no significant past medical history who presents to the ER via private vehicle with his sister complaining of occipital headache and slurred speech. Apparently the patient had similar symptoms 2 months ago where he had an occipital headache with radiation to the frontal area that apparently resolved with Tylenol. This morning the patient woke up with another severe occipital headache with associated nausea and vomiting, the patient reported some visual changes with some central areas with surrounding scotomas in his visual stevens bilaterally, the patient also reported some dizziness and was noted to have some difficulty swallowing when attempting to take a pill that his sister gave him. The patient complained of slurred speech specifically described as difficulty finding the correct words to say. The patient denies any focal weakness, denies any facial droop or drooling but does report some difficulty ambulating. The patient denies any chest pain shortness of breath, deny subjective fevers chills or night sweats or recent illnesses. Patient denies any history of hypertension and smoking high cholesterol. The patient does report a history of palpitations which she has been able to control with change in his breathing. In the ER the patient had a comprehensive workup CBC showed WBC count of 12.6 PT INR was 11.5 and 1.1, serum sodium 138 potassium 4.7 BUN 18 creatinine 1.12, troponin was less than 0.012. EKG showed A. fib with controlled ventricular ra te of 78. CT angiography of the head and neck showed no acute intracranial pathology and was negative for any clinically significant stenosis of the internal carotid arteries. The patient was started on heparin drip and recommended for admission Review of Systems Pertinent positives per HPI all review of systems are otherwise negative Past Medical History Past Medical History: Sleep Apnea/CPAP/BIPAP Additional Past Medical History / Comment(s): Pt believes he has ASTER but has been unable to complete sleep study-wakes up, irregular heart beat at times, R knee pain, diverticular disease. Kidney stones History of Any Multi-Drug Resistant Organisms: None Reported Past Surgical History: Appendectomy Additional Past Surgical History / Comment(s): 15-20 yrs ago pt states he had a cardiac cath which was normal (cannot recall where this was done), colonoscopy- normal. Past Anesthesia/Blood Transfusion Reactions: No Reported Reaction, Motion Sickness Past Psychological History: No Psychological Hx Reported Additional Psychological History / Comment(s): Pt resides alone. He is independent. 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 Smoking Status: Never smoker Past Alcohol Use History: Occasional Past Drug Use History: None Reported - Past Family History Father Family Medical History: Dementia Additional Family Medical History / Comment(s): Father at the age of 90yrs. Mother Family Medical History: Hypertension Additional Family Medical History / Comment(s): Irregular heart beat. Mother at the age of 89yrs. Medications and Allergies Home Medications Medication Instructions Recorded Confirmed Type No Known Home Medications 10/30/18 10/30/18 History Allergies Allergy/AdvReac Type Severity Reaction Status Date / Time No Known Allergies Allergy Verified 10/30/18 07:42 Physical Exam Vitals: Vital Signs Temp Pulse Resp BP Pulse Ox 10/30/18 11:34 98.4 F 10/30/18 11:00 76 16 125/72 99 10/30/18 10:00 80 18 109/77 100 10/30/18 09:00 75 18 103/78 10/30/18 08:00 75 20 120/82 96 10/30/18 07:50 75 20 96 10/30/18 07:14 98.3 F 85 18 133/87 98 Intake and Output 10/29/18 10/30/18 10/30/18 22:59 06:59 14:59 Other: Weight 90.718 kg Constitutional: No acute distress, conversant, pleasant Eyes: Anicteric sclerae, moist conjunctiva, no lid-lag, PERRLA ENMT: NC/AT,Oropharynx clear, no erythema, exudates Neck:Supple, FROM, no masses, or JVD, No carotid bruits; No thyromegaly Lungs: Clear to auscultation, Clear to percussion, Normal respiratory effort, no accessory muscle use Cardiovascular: Irregularly irregular, No murmurs, gallops, or rubs no peripheral edema Abdominal: Soft Nontender, nom distended, no guarding, no rebound or rigidity, Normoactive bowel sounds No hepatomegaly, No splenomegaly, No palpable mass No abdominal wall hernia noted Skin: Normal temperature, tone, texture, turgor, No induration No subcutaneous nodules, No rash, lesions, No ulcers Extremities:No digital cyanosis No clubbing, Pedal pulses intact and symmetrical Radial pulses intact and symmetrical Normal gait and station, No calf tenderness Psychiatric: Alert and oriented to person, place and time, Appropriate affect Intact judgement Neuro: Muscles Strength 5/5 in all 4 extremities, Sensation to light touch grossly present throughout, Cranial nerves II-XII grossly intact. No focal sensory deficits Results CBC & Chem 7: 10/30/18 07:45 10/30/18 07:45 Labs: Abnormal Lab Results - Last 24 Hours (Table) 10/30/18 10/30/18 Range/Units 07:45 07:45 WBC 12.6 H (3.8-10.6) k/uL Neutrophils # 10.9 H (1.3-7.7) k/uL Lymphocytes # 0.7 L (1.0-4.8) k/uL Chloride 110 H (98-107) mmol/L Thrombosis Risk Factor Assmnt - Choose All That Apply Any of the Below Risk Factors Present?: Yes Each Factor Represents 1 point: Obesity (BMI >25) Other Risk Factors: Yes Each Risk Factor Represents 2 Points: Age 61-74 years Other congenital or acquired thrombophilia - If yes, enter type in comment: No Thrombosis Risk Factor Assessment Total Risk Factor Score: 3 Thrombosis Risk Factor Assessment Level: Moderate Risk Assessment and Plan (1) TIA (transient ischemic attack) Current Visit: Yes Status: Acute Code(s): G45.9 - TRANSIENT CEREBRAL ISCHEMIC ATTACK, UNSPECIFIED SNOMED Code(s): 100022141 (2) Occipital headache Current Visit: Yes Status: Acute Code(s): R51 - HEADACHE SNOMED Code(s): 214265 (3) Elevated blood-pressure reading without diagnosis of hypertension Current Visit: Yes Status: Acute Code(s): R03.0 - ELEVATED BLOOD-PRESSURE READING, W/O DIAGNOSIS OF HTN SNOMED Code(s): 811795008 (4) Slurred speech Current Visit: Yes Status: Acute Code(s): R47.81 - SLURRED SPEECH SNOMED Code(s): 670278944 (5) New onset atrial fibrillation Current Visit: Yes Status: Acute Code(s): I48.91 - UNSPECIFIED ATRIAL FIBRILLATION SNOMED Code(s): 65579844 Plan: Patient is placed in observation anticipate a less than 2 midnight stay with concern for TIA/CVA after presenting with the aforementioned neurologic complaints of slurred speech, difficulty swallowing with occipital headache. Patient found to be in new onset A. fib with ventricular rate controlled, daryl ent has had some elevated blood pressure readings with no previous diagnosis of hypertension. We'll order a 2-D echocardiogram with Doppler study, CT A of the head and neck is negative, will check lipid panel. Start the patient on antiplatelet therapy with aspirin, patient was initiated on heparin in the ER. We'll also consult cardiology and neurology. We'll continue to follow his clinical course CODE STATUS: Full code Discussed plan of care with: Patient and his sister Anticipated discharge: 1-2 days to home Time with Patient: Greater than 30
[2018-10-30] MEDS ORDERED: HYDROCHLOROTHIAZIDE 25 MG TAB PO SCH (14:00)
[2018-10-30 14:26] LABS: Cholesterol 175 mg/dL (<200); HDL Cholesterol 45 mg/dL (40-60); LDL Cholesterol,Calculated 114 mg/dL (0-99); Triglycerides 82 mg/dL (<150)
--- NOTE | 2018-10-30 16:39 | CONS ---
CONSULTATION Mr. Preston is a 63-year-old gentleman who is seen for cardiac evaluation. Patient's emergency medical records are reviewed. This patient gives a history that about 2 weeks ago he started having some tightness and a dull aching headache in his occipital head area with radiation to the anterior head. His dull aching headache persisted. He had slight vision changes suggestive of perhaps some tunnel vision. He did not have any nausea or vomiting. This morning the patient again had a headache and slight nausea. He had difficulty swallowing this morning. The patient does give a history that he has a history of irregular heartbeat, but he never has been documented to have atrial fibrillation. His mother and sister both have a history of atrial fibrillation. The patient denies any history of diabetes or hypertension. There is no history of coronary artery disease. The patient otherwise is physically active. He is not taking any medications. In the emergency room, patient had a CT scan of the brain that was normal. CT angiogram was normal. No intracranial coronary artery disease was detected. In the emergency room, the patient's EKG was suggestive of atrial fibrillation with a controlled rate. PAST MEDICAL HISTORY: 1. History of possible obstructive sleep apnea. 2. History of irregular heartbeat. 3. History of right knee pain. 4. The patient gives a history that he had a cardiac cath about 15-20 years ago which was normal. 5. Patient had a colonoscopy that was normal. SOCIAL HISTORY: Patient was never a smoker. Drug history: None. Patient denies any history of taking [id number] medications. PHYSICAL EXAMINATION: In the emergency room, this patient's blood pressure was 130/87 mmHg. Patient was afebrile. Head/ENT examination is negative. Neck is supple. There is no increase in jugular venous pressure. Both the carotid pulses are felt. There is no bruit. Chest is symmetrical. HEART: The PMI is not felt. First and second heart sounds are normal. There is no evidence of any murmur. Lungs are clinically clear to auscultation and percussion. Abdomen is soft. Liver and spleen are not enlarged. Bowel sounds are heard. EXTREMITIES: Peripheral pulsations are 2+. EKG shows evidence of atrial fibrillation with a controlled rate. Patient's CT scan of the brain is normal. The patient's troponin is 0.012. LDL cholesterol is 114. IMPRESSION: This patient had symptoms of occipital headache, some vision changes and difficulty in swallowing. Rule out transient ischemic attacks versus stroke in posterior cerebral circulation. The CT scan is normal. CT angiogram does not show any blockage in the main coronary arteries. Patient does have evidence of atrial fibrillation with a controlled rate. In view that the CT scan is normal, we will discontinue heparin and start the patient on Eliquis 5 mg b.i.d. Echo and Doppler study will be done. We will get MRI of the brain. Neurology consultation is suggested. Depending upon the results, further recommendations will be made. After the patient is anticoagulated for 2-3 weeks and if he persists to be in atrial fibrillation, we will consider LULÚ and cardioversion. MMGENNAROL / IJN: [id number] /
[2018-10-30] MEDS: APIXABAN 5 MG TAB PO SCH (17:48)
--- NOTE | 2018-10-30 18:27 | P.CNNES ---
History of Present Illness Consult date: 10/30/18 Reason for Consult: Neuro symptoms History of Present Illness: Patient is a 63-year-old male who has been having some neurological symptoms off and on for the past 1 month. One time he had issues with balance, as he felt his balance was not right. He was not stable, walking like a drunk but then it resolved. Couple times he had visual disturbance in which he had tunneling of the vision, which shimmering visual scotomas in the periphery of the vision. He had these about 2-3 times so far, lasted for 5-10 minutes. Denies any history of migraines. Today he was at sister's house, when he started having a bad headache pointing to the back of the head and then frontal region. His sister gave him aspirin, which he noticed that he couldn't swallow, although his mouth was not dry. He noticed some slurring of words, difficulty coming up with words. His sister noticed that he was slurring speech. He therefore came to the ER, underwent computed tomography scan of the head, which revealed no acute process. CTA of head and neck showed no large vessel stenosis, occlusion or aneurysms. Chest x-ray showed no acute process. EKG showed atrial fibrillation with competing junctional pacemaker, abnormal EKG. Patient was seen by cardio logist, and has been started on heparin IV. Patient states that his symptoms have improved. His speech difficulty, dysphagia has gone. Still with mild headache but not very bad. Patient denies any high blood pressure, or diabetes. He denies tobacco use, although he does drink alcohol occasionally. 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 Patient states that both his parents of a stroke at the late age around 89- 90. Review of Systems All systems: negative (No facial droop, no abdominal pain, no shortness of breath.) Past Medical History Past Medical History: Sleep Apnea/CPAP/BIPAP Additional Past Medical History / Comment(s): Pt believes he has ASTER but has been unable to complete sleep study-wakes up, irregular heart beat at times, R knee pain, diverticular disease. Kidney stones History of Any Multi-Drug Resistant Organisms: None Reported Past Surgical History: Appendectomy Additional Past Surgical History / Comment(s): 15-20 yrs ago pt states he had a cardiac cath which was normal (cannot recall where this was done), colonoscopy- normal. Past Anesthesia/Blood Transfusion Reactions: No Reported Reaction, Motion Sickness Past Psychological History: No Psychological Hx Reported Additional Psychological History / Comment(s): Pt resides alone. He is independent. 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 Smoking Status: Never smoker Past Alcohol Use History: Occasional Past Drug Use History: None Reported - Past Family History Father Family Medical History: Dementia Additional Family Medical History / Comment(s): Father at the age of 90yrs. Mother Family Medical History: Hypertension Additional Family Medical History / Comment(s): Irregular heart beat. Mother at the age of 89yrs. Medications and Allergies Home Medications Medication Instructions Recorded Confirmed Type No Known Home Medications 10/30/18 10/30/18 History Allergies Allergy/AdvReac Type Severity Reaction Status Date / Time No Known Allergies Allergy Verified 10/30/18 07:42 Physical Examination - Vital Signs Vital Signs: Vital Signs Temp Pulse Resp BP Pulse Ox 10/30/18 11:34 98.4 F 10/30/18 11:00 76 16 125/72 99 10/30/18 10:00 80 18 109/77 100 10/30/18 09:00 75 18 103/78 10/30/18 08:00 75 20 120/82 96 10/30/18 07:50 75 20 96 10/30/18 07:14 98.3 F 85 18 133/87 98 Intake and Output 10/30/18 10/30/18 10/30/18 06:59 14:59 22:59 Intake Total 240 Output Total 175 Balance 240 -175 Intake: Oral 240 Output: Urine 175 Other: Weight 90.718 kg On examination patient is an elderly male, in no distress. He is alert and awake fully oriented speech and language functions are normal. On cranial nerve examination pupils are round and reactive to light, visual stevens are full. Extraocular muscles are intact. Face is symmetric, tongue protrudes to the midline. Palatal elevation sensation normal. On muscle strength testing there is no pronator drift and the strength is normal in arms and legs distally and proximally. Reflexes are 1+ to 2+, and plantars downgoing. Sensory touch is equal. No ataxia for [id number]-we-dkij testing, tone and bulk of muscles normal. 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 Patient now has been diagnosed with new onset atrial fibrillation, likely the source of TIAs. Plan: Patient has been started on heparin IV. Probably will need long-term anticoagulation to prevent strokes related to atrial fibrillation. Patient's neurological examination at present is unremarkable and his symptoms have mostly resolved. We will follow patient clinically.
[2018-10-31] MEDS ORDERED: PANTOPRAZOLE 40 MG TABLET PO SCH (07:30)
--- NOTE | 2018-10-31 08:19 | MR ---
EXAMINATION TYPE: MR brain wo/w con DATE OF EXAM: 10/31/2018 COMPARISON: CT brain from yesterday. HISTORY: Stroke, patient admitted for difficulty with speech and vision changes, acute onset neuro de ficits yesterday. TECHNIQUE: Multiplanar, multisequence images of the brain and brainstem is performed without and with IV contras t, utilizing 8.5 mL intravenous Gadavist . FINDINGS: Diffusion weighted images demonstrate no evidence of a recent infarct or other diffusion ab normality. There is no extra-axial fluid collection or significant white matter signal abnormality. The ventricular system and cisternal spaces are normal in size and appearance. The brain volume is age appropriate. Midline structures demonstrate normal morphology. The craniocervical junction appears within normal limits. Post contrast images demonstrate no abnormal enhancement. The dural venous sinuses appear pa tent. The globes are intact bilaterally. There is mild mucosal thickening involving bilateral maxilla ry sinuses inferior aspect with 2.7 cm posterior left maxillary sinus mucous retention cyst or polyp redemonstrated. IMPRESSION: No evidence of a recent infarct. Chronic maxillary sinus disease otherwise fairly unremar kable study.
[2018-10-31] MEDS: APIXABAN 5 MG TAB PO SCH (08:37)
[2018-10-31 08:39] VITALS: RESP 16
[2018-10-31] MEDS ORDERED: ASPIRIN 325 MG TAB PO SCH (09:00)
[2018-10-31] MEDS: SODIUM CHLORIDE 0.9% 1,000 ML IV SCH (10:44)
[2018-10-31 14:36] VITALS: BP 104/79; PULSE 85; TEMP 98.5
--- NOTE | 2018-10-31 14:58 | P.PN ---
Subjective Progress Note Date: 10/31/18 Patient denies any new neurological symptoms. All symptoms have resolved. He had an MRI of brain performed which was normal. Objective - Vital Signs Vital signs: Vital Signs Temp 98.5 F 10/31/18 12:00 Pulse 85 10/31/18 12:00 Resp 16 10/31/18 12:00 BP 104/79 10/31/18 12:00 Pulse Ox 98 10/31/18 12:00 Intake & Output 10/30/18 10/31/18 10/31/18 18:59 06:59 18:59 Intake Total 202 841 6899 Output Total 175 Balance 546 415 4545 Weight 90.718 kg 85.2 kg Intake: Oral 126 608 4587 Output: Urine 175 Other: Voiding Method Urinal Urinal # Voids 2 2 - Exam Nonfocal. 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 Patient now has been diagnosed with new onset atrial fibrillation, likely the source of TIAs. Plan: Patient has been started Apixaban 5 mg twice a day for stroke prevention related to atrial fibrillation. Patient's neurological examination at present is unremarkable and his symptoms have mostly resolved. Neurologically clear for discharge.
--- NOTE | 2018-10-31 15:08 | P.DS ---
Providers Date of admission: 10/30/18 09:17 Expected date of discharge: 10/31/18 Attending physician: Grant Cedeño MD Consults: 10/30/18 09:00 Consult Physician Routine Consulting Provider: Layton Parrish Consult Reason/Comments: neuro symptoms Do you want consulting provider notified?: Yes 10/30/18 13:48 Consult Physician Routine Consulting Provider: Kelle Colon Consult Reason/Comments: Atrial fibrillation Do you want consulting provider notified?: Yes 10/30/18 15:45 Consult Physician Urgent Consulting Provider: Layton Parrish Consult Reason/Comments: tia Do you want consulting provider notified?: Yes Primary care physician: Elias Christian - Doris Diagnosis(es) (1) TIA (transient ischemic attack) Current Visit: Yes Status: Acute (2) Occipital headache Current Visit: Yes Status: Acute (3) Elevated blood-pressure reading without diagnosis of hypertension Current Visit: Yes Status: Acute (4) Slurred speech Current Visit: Yes Status: Acute (5) New onset atrial fibrillation Current Visit: Yes Status: Acute Hospital Course: the patient is a 63-year-old male with no significant past medical history that was admitted with concern for TIA if he presented with occipital headache slurred speech and trouble swallowing which all resolved within 24 hours, a workup was done here included a CTA of his head and neck this was negative for any acute intracranial pathology and negative for any suggestion of carotid artery disease, patient was noted to be in A. fib with controlled ventricular rate. He was started on anticoagulation with IV heparin in the ER and was subsequently seen by cardiology and transitioned to DOAC with Eliquis. The patient was also seen by neurology An MRI was ordered that was also normal, lipid panel that was ordered showed a LDL of 114 and patient was started on statin therapy. Patient was also seen by cardiology and echocardiogram was ordered. Cardiology recommends continuing anticoagulation for the next 2-3 weeks with follow-up in clinic to evaluate for possible cardioversion. Patient was subsequently discharged home in stable condition instructed to follow-up with his primary care physician. This discharge process took approximately 30 minutes Focused exam Neurological: Cranial nerves II through XII grossly intact no focal deficits appreciated Patient Condition at Discharge: Good Plan - Discharge Summary Discharge Rx Participant: No New Discharge Prescriptions: No Action No Known Home Medications Discharge Medication List No Known Home Medications 10/30/18 [History] Follow up Appointment(s)/Referral(s): Elias Christian MD [Primary Care Provider] - 11/05/18 10:30 am Kelle Colon MD [STAFF PHYSICIAN] - 11/14/18 10:30 am Patient Instructions/Handouts: A-fib (Atrial Fibrillation) (DC), Acute Headache (DC), Safe Use of Anticoagulants (DC) Activity/Diet/Wound Care/Special Instructions: pts copay for elinannetteis is $40/mo-pt qualifies for $10/mo coupon Pt can go once Dr Colon has seen patient - follow up with Dr Pope to make sure.
--- NOTE | 2018-10-31 17:10 | ECHOF ---
Referral Reason:rule out CVA MEASUREMENTS -------- HEIGHT: 180.3 cm WEIGHT: 90.7 kg BP: RVIDd: 3.0 cm (< 3.3) IVSd: 1.1 cm (0.6 - 1.1) LVIDd: 4.4 cm (3.9 - 5.3) LVPWd: 1.3 cm (0.6 - 1.1) IVSs: 1.8 cm LVIDs: 2.5 cm LVPWs: 1.6 cm LAESV Index (A-L): 27.65 ml/m Ao Diam: 3.1 cm (2.0 - 3.7) AV Cusp: 2.4 cm (1.5 - 2.6) LA Diam: 3.6 cm (2.7 - 3.8) RAP: 5.00 mmHg RVSP: 28.73 mmHg FINDINGS -------- Atrial fibrillation. This was a technically good study. The left ventricular size is normal. There is mild concentric left ventricular hypertrophy. Overa ll left ventricular systolic function is normal with, an EF between 55 - 60 %. The right ventricle is normal in size. The left atrium is normal in size. The right atrial size is normal. The aortic valve is trileaflet and appears structurally normal. The mitral valve is normal. Mild mitral regurgitation is present. Mild tricuspid regurgitation present. There is no evidence of pulmonary hypertension. The right v entricular systolic pressure, as measured by Doppler, is 28.73mmHg. There is no pulmonic regurgitation present. The aortic root size is normal. Normal inferior vena cava with normal inspiratory collapse consistent with estimated right atrial pre ssure of 5 mmHg. There is no pericardial effusion. CONCLUSIONS -------- 1. Atrial fibrillation. 2. This was a technically good study. 3. The left ventricular size is normal. 4. There is mild concentric left ventricular hypertrophy. 5. Overall left ventricular systolic function is normal with, an EF between 55 - 60 %. 6. The right ventricle is normal in size. 7. The left atrium is normal in size. 8. The right atrial size is normal. 9. The aortic valve is trileaflet and appears structurally normal. 10. The mitral valve is normal. 11. Mild mitral regurgitation is present. 12. Mild tricuspid regurgitation present. 13. There is no evidence of pulmonary hypertension. 14. The right ventricular systolic pressure, as measured by Doppler, is 28.73mmHg. 15. There is no pulmonic regurgitation present. 16. The aortic root size is normal. 17. Normal inferior vena cava with normal inspiratory collapse consistent with estimated right atrial pressure of 5 mmHg. 18. There is no pericardial effusion. ACID SPLICER: Saranya Munroe RDCS
--- NOTE | 2018-10-31 18:56 | PN ---
PROGRESS NOTE This patient was admitted with a complaint of some blurred vision, difficulty in swallowing and headache suggestive of recurrent TIA. Neurological consultation was noted. The patient's MRI is normal. The patient is in atrial fibrillation with a controlled rate. He is feeling better. He is complaining of mild headache. Echocardiographic report is being awaited. The patient is in atrial fibrillation with a controlled rate. This was discussed with the patient. I will continue the patient on anticoagulation for 4 weeks and subsequently, if the patient remains in atrial fibrillation, we will consider cardioversion. MMODL / IJN: [id number] /
[2018-10-31] MEDS ORDERED: ATORVASTATIN 10 MG TAB PO SCH (21:00)
== END 2018-10-31 16:35 | disposition home or self-care (01) ==
LOC: EC 07:10 → 3SCARD 09:17
PROVIDERS: ADMIT Family Medicine; ATTEND Family Medicine
DX: G45.9 Transient cerebral ischemic attack, unspecified (principal); I48.91 Unspecified atrial fibrillation; R03.0 Elevated blood-pressure reading, without diagnosis of hypertension; G47.33 Obstructive sleep apnea (adult) (pediatric); H53.453 Other localized visual field defect, bilateral; K57.90 Diverticulosis of intestine, part unspecified, without perforation or abscess without bleeding; E66.9 Obesity, unspecified; M25.561 Pain in right knee; Z68.25 Body mass index [BMI] 25.0-25.9, adult; Z87.442 Personal history of urinary calculi; Z90.49 Acquired absence of other specified parts of digestive tract; Z82.49 Family history of ischemic heart disease and other diseases of the circulatory system; Z82.3 Family history of stroke; Z81.8 Family history of other mental and behavioral disorders
CPT/HCPCS: 96376; 96365; 96366; 99285; 36415; 93005; 93306; 80061; 80053; 84443; 84484; 85025; 85610; 85730; 71046; 70496; 70450; 70498; 70553; G0378 ×2; J1644 ×2; A9585; Q9967

== ENCOUNTER → 2019-01-28 | Outpatient (CLI) | payer BC ==
[2019-01-28 12:22] LABS: Potassium 4.8 mmol/L (3.5-5.1)
[2019-01-28 12:28] LABS: HCT 43.8 % (39.0-53.0); HGB 14.3 gm/dL (13.0-17.5); MCH 31.9 pg (25.0-35.0); MCHC 32.7 g/dL (31.0-37.0); MCV 97.6 fL (80.0-100.0); Mean Platelet Volume 8.8; Platelet Count 178 k/uL (150-450); RBC 4.49 m/uL (4.30-5.90); RDW 13.4 % (11.5-15.5)
== END ==
LOC: LABPAT 11:00
PROVIDERS: ATTEND Internal Medicine Cardiovascular Disease
DX: Z01.812 Encounter for preprocedural laboratory examination (principal); I48.1 Persistent atrial fibrillation
CPT/HCPCS: 36415; 80051; 82565; 84520; 85027

== ENCOUNTER 2019-01-31 10:27 | Day surgery (SDC) | payer BC ==
[2019-01-28 17:19] VITALS: BMI 26.2
[~2019-01-31 10:27] MED LIST: SODIUM CHLORIDE 0.9% 1,000 ML IV SCH
[2019-01-31 11:51] VITALS: TEMP 97.5
[2019-01-31] MEDS ORDERED: IV FLUID CONTINUATION 1,000 ML IV ONE ×2 (12:07)
[2019-01-31] MEDS ORDERED: LIDOCAINE 1% INJ 10MG/ML (20 ML MDV) ONE (12:07)
[2019-01-31] MEDS ORDERED: PROPOFOL 10 MG/ML 20 ML VIAL IV ONE (12:07)
[2019-01-31] MEDS ORDERED: FLECAINIDE 50 MG TAB PO STA (12:43)
[2019-01-31 13:01] VITALS: RESP 16
[2019-01-31 14:36] VITALS: BP 148/85; PULSE 68
--- NOTE | 2019-01-31 18:44 | ECHOT ---
TRANSESOPHAGEAL ECHOCARDIOGRAM PREOPERATIVE DIAGNOSIS: Atrial fibrillation. PROCEDURE: Transesophageal echocardiogram. This patient was given intravenous sedation by the nurse power system electrical engineer with propofol and subsequently transesophageal echocardiogram was performed without any complications. Left ventricular chamber is normal in size. Mitral valve morphology is normal. There is a possibility of mild mitral valve prolapse and mild mitral regurgitation is noted. Left atrium is normal in size. There is no evidence of thrombus in left atrium, atrial appendage or left ventricular apex. Right ventricle and right atrial chamber are normal in size. Aortic and tricuspid valve morphology is normal. Interatrial septum is intact. There is no evidence of any PFO by saline contrast study. FINAL IMPRESSION: 1. There is no evidence of thrombus in left atrial appendage. 2. There is possible mild mitral valve prolapse and mild mitral regurgitation. 3. Both atria are normal in size. 4. There is no evidence of thrombus in left atrium. 5. Interatrial septum is intact and there is no evidence of any PFO. MMODL / IJN: [id number] /
--- NOTE | 2019-01-31 18:44 | PCN ---
PROCEDURE NOTE PROCEDURE: Elective cardioversion. Patient was given intravenous sedation with propofol by the nurse social security specialist and elective cardioversion was performed. Patient was shocked with 360 joules in the synchronous mode to normal sinus rhythm. The patient tolerated the procedure well. Vital signs remained stable. Patient will be given one dose of flecainide 100 mg and subsequently he will be discharged home on 50 mg twice a day. Patient is advised to continue Eliquis 5 mg b.i.d. MMODShanti / LISSETTN: [id number] /
[2019-01-31] MEDS ORDERED: FLECAINIDE 50 MG TAB PO SCH (21:00)
--- NOTE | 2019-02-07 06:50 | CDI ---
Outpatient Documentation Clarification Form Date: 02/07/19 CDS/Pole Maker Name: Jackeline Mcarthur Phone: If any questions, call Neva Stokes Safety Associate at [phone] Patient Name: Lencho [facility] Admit Date: 01/31/19 Discharge Date: 01/31/19 ATTENTION: The [facility] Coding Staff appreciate your assistance in clarifying documentation. Please respond to the clarification below the line at the bottom and electronically sign. The [facility] Coding staff will review the response and follow-up if needed. Please note: Queries are made part of the Legal Health Record. If you have any questions, please contact the Safety Associate. Dear Dr. Colon, It appears that your LULÚ dictation does not include documentation that the following part of the study was done. Doppler Echocardiography pulse waive w/spectral display and/or Doppler Echocardiography Color Flow Velocity Mapping If these were done, please document that it was done in addendum to your LULÚ report or document details/results that indicate that it was done on this form below the line. Thank you for your kind consideration. [place] doppler echocardiography study done showing mild mitral regurgitation. MTDD
== END 2019-01-31 14:36 | disposition home or self-care (01) ==
LOC: CATHCVL 10:27
PROVIDERS: ATTEND Internal Medicine Cardiovascular Disease
DX: I48.1 Persistent atrial fibrillation (principal); E78.5 Hyperlipidemia, unspecified; I73.9 Peripheral vascular disease, unspecified; G47.33 Obstructive sleep apnea (adult) (pediatric); Z86.73 Personal history of transient ischemic attack (TIA), and cerebral infarction without residual deficits; Z79.01 Long term (current) use of anticoagulants; Z79.899 Other long term (current) drug therapy; Z79.82 Long term (current) use of aspirin
CPT/HCPCS: 93312; 93325; 92960; J2001; J2704; 93320

== ENCOUNTER → 2021-02-02 | Outpatient (CLI) | payer MEDICARE, BC ==
[2021-02-02 13:59] LABS: African American GFR (CKD) 102.8 (60.0-200.0); Albumin 4.2 g/dL (3.80-4.90); Albumin/Globulin Ratio 1.5 (1.60-3.17); Anion Gap 9.3 mmol/L (4.00-12.00); BUN/Creat Ratio 12.22 Ratio (12.00-20.00); Calcium 9.1 mg/dL (8.7-10.3); Carbon Dioxide 25.7 mmol/L (21.6-31.8); Chol/HDL Ratio 3.14; Globulin 2.8 g/dL (1.6-3.3); LDL Cholesterol,Calculated 84.4 mg/dL (0.0-131.0); Non-African American GFR(CKD) 88.7 (60.0-200.0); Potassium 3.9 mmol/L (3.5-5.5); Total Bilirubin 1.1 mg/dL (0.2-1.2); VLDL Calculation 24.6 mg/dL (5.00-40.00)
== END | disposition home or self-care (01) ==
LOC: LABWHC1 08:02
PROVIDERS: ATTEND Internal Medicine Clinical Cardiac Electrophysiology
DX: E78.5 Hyperlipidemia, unspecified (principal); I48.91 Unspecified atrial fibrillation
CPT/HCPCS: 36415; 80053; 80061; 84443

== ENCOUNTER 2021-03-01 10:37 | Day surgery (SDC) | payer MEDICARE, BC ==
[2021-03-01] MEDS ORDERED: SODIUM CHLORIDE 0.9% 1,000 ML IV SCH (10:45)
[2021-03-01 11:09] VITALS: PULSE 68; RESP 16; TEMP 98.4
[2021-03-01] MEDS ORDERED: LIDOCAINE 1% INJ 10MG/ML (20 ML MDV) ONE (12:18)
[2021-03-01] MEDS ORDERED: LIDOCAINE 1% INJ 10MG/ML (20 ML MDV) SQ ONE ×2 (13:09→13:10)
--- NOTE | 2021-03-01 13:26 | P.EPPROC ---
- EP Procedure Note Electrophysiology Procedure Note: Loop monitor implant Primary physicians: [place]: Dr. Fischer Indication: Sick Sinus Syndrome and access of atrial fibrillation on clinical Patient was brought to the EP lab in a fasting state. Written informed consent was obtained prior to the procedure. The left pectoral area was prepped and draped per protocol. Intravenous antibiotic was administered preoperatively. A subcutaneous Loop monitor was implanted successfully and the wound was closed per protocol. The device was programmed to detect significant errol- arrhythmic and tachy-arrhythmic events, per protocol. Device and programming details: Sick Sinus Syndrome and A. fib management per protocol Procedure performed under local anesthesia
[2021-03-01 15:01] VITALS: BP 155/75
== END 2021-03-01 13:47 | disposition home or self-care (01) ==
LOC: CATHEP 10:37
PROVIDERS: ATTEND Internal Medicine Clinical Cardiac Electrophysiology
DX: I49.5 Sick sinus syndrome (principal); I48.91 Unspecified atrial fibrillation
CPT/HCPCS: 33285; 87635; C1764; J0690; J2001

== ENCOUNTER 2022-08-16 15:07 | Observation (INO) | payer BC, MEDICARE ==
--- NOTE | 2022-08-16 16:49 | ED ---
General Adult HPI - General Chief complaint: Neuro Symptoms/Deficit Stated complaint: Possible mini strokes Time Seen by Provider: 08/16/22 16:25 Source: patient, family, RN notes reviewed Mode of arrival: ambulatory Limitations: no limitations - History of Present Illness Initial comments: Patient is a pleasant 67-year-old male presenting to the emergency department with family with concerns for possible TIA. Patient had similar episode around 5 years ago. Patient was at [facility] and started becoming more forgetful. Patient was somewhat confused. Patient did not know where he was. Patient states symptoms have improved however not completely resolved. No extremity weakness. No slurred speech. No visual changes. No paresthesias. Last known well was around 1 PM - Related Data Home Medications Medication Instructions Recorded Confirmed Flecainide [Tambocor] 50 mg PO BID@0600,1800 01/31/19 08/16/22 Ubidecarenone [Co Q-10] 300 mg PO DAILY 03/01/21 08/16/22 Apixaban [Eliquis] 5 mg PO BID@0600,1800 08/16/22 08/16/22 Atorvastatin [Lipitor] 40 mg PO DAILY@1800 08/16/22 08/16/22 Allergies Allergy/AdvReac Type Severity Reaction Status Date / Time No Known Allergies Allergy Verified 08/16/22 19:07 Review of Systems ROS Statement: Those systems with pertinent positive or pertinent negative responses have been documented in the HPI. ROS Other: All systems not noted in ROS Statement are negative. Constitutional: Denies: fever Eyes: Denies: eye pain ENT: Denies: ear pain Respiratory: Denies: cough Cardiovascular: Denies: chest pain Endocrine: Denies: fatigue Gastrointestinal: Denies: abdominal pain Genitourinary: Denies: urgency Musculoskeletal: Denies: back pain Skin: Denies: rash Neurological: Reports: confusion. Denies: weakness Past Medical History Past Medical History: Sleep Apnea/CPAP/BIPAP Additional Past Medical History / Comment(s): Pt believes he has ASTER but has been unable to complete sleep study-wakes up, irregular heart beat at times, R knee pain, diverticular disease. Kidney stones History of Any Multi-Drug Resistant Organisms: None Reported Past Surgical History: Appendectomy Additional Past Surgical History / Comment(s): 15-20 yrs ago pt states he had a cardiac cath which was normal (cannot recall where this was done), colonoscopy- normal. Past Anesthesia/Blood Transfusion Reactions: No Reported Reaction, Motion Sickn ess Past Psychological History: No Psychological Hx Reported Smoking Status: Never smoker Past Alcohol Use History: Occasional Past Drug Use History: None Reported - Past Family History Father Family Medical History: Dementia Additional Family Medical History / Comment(s): Father at the age of 90yrs. Mother Family Medical History: CVA/TIA, Hypertension Additional Family Medical History / Comment(s): Irregular heart beat. Mother at the age of 89yrs. General Exam Limitations: no limitations General appearance: alert, in no apparent distress Head exam: Present: atraumatic, normocephalic Eye exam: Present: normal appearance, PERRL, EOMI. Absent: nystagmus ENT exam: Present: normal oropharynx Neck exam: Present: normal inspection Respiratory exam: Present: normal lung sounds bilaterally Cardiovascular Exam: Present: regular rate, normal rhythm GI/Abdominal exam: Present: soft. Absent: tenderness Extremities exam: Present: normal inspection Neurological exam: Present: alert, CN II-XII intact. Absent: motor sensory deficit Expanded Neurological exam: Present: protecting the airway Patient oriented to: Present: person, place. Absent: time (Patient is oriented to year however questions if the month is September) Speech: Present: fluid speech Cranial nerves: EOM's Intact: Normal, Facial Sensation: Normal Sensory exam: Upper Extremity Light Touch: Normal, Lower Extremity Light Touch: Normal Motor strength exam: RUE: 5, LUE: 5, RLE: 5, LLE: 5 Eye Response: (4) open spontaneously Motor Response: (6) obeys commands Verbal Response: (5) oriented Psychiatric exam: Present: normal affect, normal mood Skin exam: Present: normal color Course Vital Signs 08/16/22 08/16/22 08/16/22 15:13 16:58 17:13 Temperature 98.0 F Pulse Rate 89 83 80 Respiratory 18 18 18 Rate Blood Pressure 168/102 140/80 O2 Sat by Pulse 97 99 99 Oximetry 08/16/22 08/16/22 08/16/22 17:28 17:39 17:58 Temperature 98.1 F Pulse Rate 82 84 84 Respiratory 18 16 18 Rate Blood Pressure 135/68 160/82 139/77 O2 Sat by Pulse 98 98 97 Oximetry 08/16/22 18:28 Temperature Pulse Rate 81 Respiratory 18 Rate Blood Pressure 141/79 O2 Sat by Pulse 97 Oximetry - Reevaluation(s) Reevaluation #1: 08/16/22 16:47 Last known well is greater than 3 hours. In addition there is not a clear-cut diagnosis at this time and therefore patient is not considered a TPA candidate. Risks felt to outweigh benefits. EKG Findings - EKG Results: EKG: interpreted by ERMD, sinus rhythm, normal axis, normal QRS, normal ST/T Medical Decision Making - Medical Decision Making Was pt. sent in by a medical professional or institution (, PA, BOTTLING ROOM WORKER, urgent care, hospital, or usp...) When possible be specific @ -[No] Did you speak to anyone other than the patient for history (EMS, parent, family, police, friend...)? What history was obtained from this source @ -Sister's present who help provide history including past medical history Did you review nursing and triage notes (agree or disagree)? Why? @ -[I reviewed and agree with nursing and triage notes] Were old charts reviewed (outside hosp., previous admission, EMS record, old EKG, old radiological studies, urgent care reports/EKG's, usp records)? Report findings @ -[No old charts were reviewed] Differential Diagnosis (chest pain, altered mental status, abdominal pain women, abdominal pain men, vaginal bleeding, weakness, fever, dyspnea, syncope, headache, dizziness, GI bleed, back pain, seizure, CVA, palpatations, mental health)? @ -Differential Altered Mental Status: Hypoglycemia, DKA, hypercapnia, ETOH, overdose, CO poisoning, trauma, myxedema coma, HTN encephalopathy, infection, encephalitis, psychosis, intercranial hemorrhage, hepatic encephalopathy, meningitis, CVA, this is not meant to be an all-inclusive list EKG interpreted by me (3pts min.). @ -[As above] X-rays interpreted by me (1pt min.). @ -[Chest x-ray shows no acute process] CT interpreted by me (1pt min.). @ -CT brain without obvious large mass or hemorrhage U/S interpreted by me (1pt. min.). @ -[None done] What testing was considered but not performed or refused? (CT, X-rays, U/S, labs)? Why? @ -[None] What meds were considered but not given or refused? Why? @ -[None] Did you discuss the management of the patient with other professionals (professionals i.e. , PA, BOTTLING ROOM WORKER, lab, RT, psych nurse, drug abuse social worker, french edge operator, teacher, control systems drafting officer, case technician)? Give summary @ -[Case was discussed with practitioner Geoff Mantilla, who will admit covered with Dr. Lange, who will admit covering hospital call.] Was smoking cessation discussed for >3mins.? @ -[No] Was critical care preformed (if so, how long)? @ -[No] Were there social determinants of health that impacted care today? How? (Homelessness, low income, unemployed, alcoholism, drug addiction, transportation, low edu. Level, literacy, decrease access to med. care, nursing home, rehab)? @ -[No] Was there de-escalation of care discussed even if they declined (Discuss DNR or withdrawal of care, Hospice)? DNR status @ -[No] What co-morbidities impacted this encounter? (DM, HTN, Smoking, COPD, CAD, Cancer, CVA, ARF, Chemo, Hep., AIDS, mental health diagnosis, sleep apnea, morbid obesity)? @ -[None] Was patient admitted / discharged? Hospital course, mention meds given and route, prescriptions, significant lab abnormalities, going to OR and other pertinent info. @ -[Patient reevaluated with mild improvement. Patient still having some difficulty with short-term memory. He does not remember going to computed tomography scan. Patient and family are updated on results with presumptive diagnosis and plan.] Undiagnosed new problem with uncertain prognosis? @ -[No] Drug Therapy requiring intensive monitoring for toxicity (Heparin, Nitro, Insulin, Cardizem)? @ -[No] Were any procedures done? @ -[No] Diagnosis/symptom? @ -TIA Acute, or Chronic, or Acute on Chronic? @ -Acute Uncomplicated (without systemic symptoms) or Complicated (systemic symptoms)? @ -[default] Side effects of treatment? @ -[No] Exacerbation, Progression, or Severe Exacerbation? @ -[No] Poses a threat to life or bodily function? How? (Chest pain, [place], [place], pneumonia, PE, COPD, DKA, ARF, appy, cholecystitis, CVA, Diverticulitis, Homicidal, Suicidal, threat to staff... and all critical care pts) @ -[No] - Lab Data Result diagrams: 08/16/22 16:48 08/16/22 16:48 Lab Results 08/16/22 08/16/22 08/16/22 Range/Units 16:43 16:48 16:48 WBC 8.2 (3.8-10.6) k/uL RBC 4.88 (4.30-5.90) m/uL Hgb 16.1 (13.0-17.5) gm/dL Hct 47.3 (39.0-53.0) % MCV 96.9 (80.0-100.0) fL MCH 32.9 (25.0-35.0) pg MCHC 34.0 (31.0-37.0) g/dL RDW 12.4 (11.5-15.5) % Plt Count 189 (150-450) k/uL MPV 9.5 Neutrophils % 74 % Lymphocytes % 16 % Monocytes % 6 % Eosinophils % 1 % Basophils % 0 % Neutrophils # 6.1 (1.3-7.7) k/uL Lymphocytes # 1.3 (1.0-4.8) k/uL Monocytes # 0.5 (0-1.0) k/uL Eosinophils # 0.0 (0-0.7) k/uL Basophils # 0.0 (0-0.2) k/uL PT 11.9 (9.0-12.0) sec INR 1.2 H (<1.2) APTT 26.3 (22.0-30.0) sec Sodium (137-145) mmol/L Potassium (3.5-5.1) mmol/L Chloride (98-107) mmol/L Carbon Dioxide (22-30) mmol/L Anion Gap mmol/L BUN (9-20) mg/dL Creatinine (0.66-1.25) mg/dL Est GFR (CKD-EPI)AfAm (>60 ml/min/1.73 sqM) Est GFR (CKD-EPI)NonAf (>60 ml/min/1.73 sqM) Glucose (74-99) mg/dL POC Glucose (mg/dL) (70-110) mg/dL POC Glu Tool Design Drafter ID Calcium (8.4-10.2) mg/dL Total Bilirubin (0.2-1.3) mg/dL AST (17-59) U/L ALT (4-49) U/L Alkaline Phosphatase (38-126) U/L Creatine Kinase 83 (55-170) U/L Total Protein (6.3-8.2) g/dL Albumin (3.5-5.0) g/dL 08/16/22 08/16/22 Range/Units 16:48 16:52 WBC (3.8-10.6) k/uL RBC (4.30-5.90) m/uL Hgb (13.0-17.5) gm/dL Hct (39.0-53.0) % MCV (80.0-100.0) fL MCH (25.0-35.0) pg MCHC (31.0-37.0) g/dL RDW (11.5-15.5) % Plt Count (150-450) k/uL MPV Neutrophils % % Lymphocytes % % Monocytes % % Eosinophils % % Basophils % % Neutrophils # (1.3-7.7) k/uL Lymphocytes # (1.0-4.8) k/uL Monocytes # (0-1.0) k/uL Eosinophils # (0-0.7) k/uL Basophils # (0-0.2) k/uL PT (9.0-12.0) sec INR (<1.2) APTT (22.0-30.0) sec Sodium 140 (137-145) mmol/L Potassium 4.0 (3.5-5.1) mmol/L Chloride 105 (98-107) mmol/L Carbon Dioxide 28 (22-30) mmol/L Anion Gap 7 mmol/L BUN 14 (9-20) mg/dL Creatinine 0.89 (0.66-1.25) mg/dL Est GFR (CKD-EPI)AfAm >90 (>60 ml/min/1.73 sqM) Est GFR (CKD-EPI)NonAf 88 (>60 ml/min/1.73 sqM) Glucose 90 (74-99) mg/dL POC Glucose (mg/dL) 79 (70-110) mg/dL POC Glu Tool Design Drafter ID Tawanda Aquiles Calcium 9.2 (8.4-10.2) mg/dL Total Bilirubin 0.9 (0.2-1.3) mg/dL AST 31 (17-59) U/L ALT 49 (4-49) U/L Alkaline Phosphatase 129 H (38-126) U/L Creatine Kinase (55-170) U/L Total Protein 7.2 (6.3-8.2) g/dL Albumin 4.2 (3.5-5.0) g/dL Disposition Clinical Impression: Transient cerebral ischemia Disposition: ADMITTED IP TO THIS HOSP Is patient prescribed a controlled substance at d/c from ED?: No Referrals: None,Stated [Primary Care Provider] - 1-2 days Time of Disposition: 19:23
[2022-08-16 16:53] LABS: Glucose,Whole Blood 79 mg/dL (70-110)
[2022-08-16 17:01] LABS: Basophils % (A) 0 %; Eosinophils % (A) 1 %; HCT 47.3 % (39.0-53.0); HGB 16.1 gm/dL (13.0-17.5); Lymphocytes # (A) 1.3 k/uL (1.0-4.8); Lymphocytes % (A) 16 %; MCH 32.9 pg (25.0-35.0); MCV 96.9 fL (80.0-100.0); Mean Platelet Volume 9.5; Monocytes # (A) 0.5 k/uL (0-1.0); Monocytes % (A) 6 %; Neutrophils # (A) 6.1 k/uL (1.3-7.7); Neutrophils % (A) 74 %; Platelet Count 189 k/uL (150-450); RBC 4.88 m/uL (4.30-5.90); RDW 12.4 % (11.5-15.5); WBC 8.2 k/uL (3.8-10.6)
[2022-08-16 17:10] LABS: ALT 49 U/L (4-49); AST 31 U/L (17-59); African American GFR (CKD) >90 (>60 ml/min/1.73 sqM); Albumin 4.2 g/dL (3.5-5.0); Alkaline Phosphatase 129 U/L (38-126); Anion Gap 7 mmol/L; Blood Urea Nitrogen 14 mg/dL (9-20); Calcium 9.2 mg/dL (8.4-10.2); Carbon Dioxide 28 mmol/L (22-30); Chloride 105 mmol/L (98-107); Glucose 90 mg/dL (74-99); Non-African American GFR(CKD) 88 (>60 ml/min/1.73 sqM); Sodium 140 mmol/L (137-145); Total Bilirubin 0.9 mg/dL (0.2-1.3); Total Protein 7.2 g/dL (6.3-8.2)
[2022-08-16 17:15] LABS: INR 1.2 (<1.2); Partial Thromboplastin Time 26.3 sec (22.0-30.0); Prothrombin Time 11.9 sec (9.0-12.0)
--- NOTE | 2022-08-16 17:23 | CT ---
EXAMINATION TYPE: CT brain wo con DATE OF EXAM: 08/16/2022 COMPARISON: 10/30/2018 HISTORY: confusion CT DLP: 1155.4 mGycm Automated exposure control for dose reduction was used. Images of the brain obtained with no contrast. Ventricles have normal size. There is no mass effect or midline shift. No sign of cranial hemorrhage. Calvarium is intact. Skull base is intact. There is normal aeration of the mastoid sinuses. There is mucosal thickening in the bilateral maxillary sinuses with mucous retention cyst IMPRESSION: No acute intracranial abnormality. Maxillary sinusitis. No significant change.
--- NOTE | 2022-08-16 19:00 | XR ---
EXAMINATION TYPE: XR chest 2V DATE OF EXAM: 08/16/2022 COMPARISON: 10/30/2018 HISTORY: Altered mental status TECHNIQUE: 2 views FINDINGS: Heart is normal. Lungs are clear. Diaphragm is normal. There are no hilar masses. There is mild thoracic dextroscoliosis. There are chest leads. No pleural effusion. IMPRESSION: No active cardiopulmonary disease. No change.
[2022-08-16] MEDS ORDERED: ASPIRIN 325 MG TAB PO STA (19:19)
[2022-08-16] MEDS: SODIUM CHLORIDE 0.9% 1,000 ML IV SCH (20:06)
--- NOTE | 2022-08-16 20:17 | US ---
EXAMINATION TYPE: US carotid duplex BILAT DATE OF EXAM: 08/16/2022 COMPARISON: NONE CLINICAL HISTORY: Stenosis. stenosis TECHNIQUE: Carotid duplex ultrasound examination. Indirect Doppler criteria was utilized. FINDINGS: EXAM MEASUREMENTS: RIGHT: Peak Systolic Velocity (PSV) cm/sec ----- Right CCA: 87.1 ----- Right ICA: 88.7 ----- Right ECA: 162.4 ICA/CCA ratio: 1.0 RIGHT: End Diastole cm/sec ----- Right CCA: 30.5 ----- Right ICA: 32.1 ----- Right ECA: 34.6 LEFT: Peak Systolic Velocity (PSV) cm/sec ----- Left CCA: 82.2 ----- Left ICA: 73.6 ----- Left ECA: 131.9 ICA/CCA ratio: 0.9 LEFT: End Diastole cm/sec ----- Left CCA: 25.7 ----- Left ICA: 27.0 ----- Left ECA: 35.3 VERTEBRALS (direction of flow): Right Vertebral: Antegrade Left Vertebral: Antegrade Rhythm: Normal MANAGER DEPARTMENT NOTES: Mild amount of plaque visualized in bilateral bulbs. Bilateral ECA velocities area elevated IMPRESSION: There is antegrade flow in the vertebral arteries. There is elevated velocity left common carotid art yolande that is suggestive of 50% stenosis. There is less than 50% stenosis in both internal carotid mayito wilian. Bilateral plaque formation. Criteria for Assigning % of Stenosis / Diameter reduction (Estimation based on the indirect measurements of the internal carotid artery velocities (ICA PSV). 1. Normal (no stenosis)=ICA PSV < 125 cm/s: ratio < 2.0: ICA EDV<40 cm/s. 2. Less than 50% stenosis=ICA PSV < 125 cm/s: ratio < 2.0: ICA EDV<40 cm/s. 3. 50 to 69% stenosis=ICA PSV of 125 to 230 cm/s: ration 2.0 ? 4.0: ICA EDV 40-100 cm/s. 4. Greater than 70% stenosis to near occlusion= ICA PSV > 230 cm/s: ratio > 4.0: ICA EDV > 100 cm/s. 5. Near occlusion= ICA PSV velocities may be low or undetectable: variable ratio and ICA EDV. 6. Total occlusion=unable to detect flow.
[2022-08-17] MEDS: SODIUM CHLORIDE 0.9% 1,000 ML IV SCH (05:20)
[2022-08-17] MEDS ORDERED: ASPIRIN 325 MG TAB PO SCH (09:00)
[2022-08-17 10:01] LABS: Chol/HDL Ratio 2.14 Ratio; LDL Cholesterol,Calculated 50.1 mg/dL (0.0-131.0); VLDL Calculation 13.92 mg/dL (5.00-40.00)
[2022-08-17 10:07] VITALS: RESP 17
--- NOTE | 2022-08-17 12:32 | P.CNNES ---
History of Present Illness Consult date: 08/17/22 Requesting physician: Lencho Marie Reason for Consult: marissa, jodi for tia History of Present Illness: This is a 67-year-old gentleman with medical history of TIA, atrial fibrillation on eliquis who presented emergency department because of confusion. Patient stated that yesterday he was at home fixing his toilet and then when he picked it up seems that he dropped it and he is unsure how he dropped it what transpired for him dropping it or it was too heavy for him to drop in. Then he had to get another toilet so he went to the heading to the store and he stated that he ended up being on grass [employer] [address] that he thinks near [facility] but was trying to head to [facility]. He is unsure why he ended up there. He felt very confused. He denied any urinary or bowel incontinence, tongue bite. Denied any headache. Denies any visual disturbance. As a result he called the family members and they brought him to the hospital. He denies any history of seizure. He denies any recent fevers or any sick contacts. He is on eliquis 5mg 1 tab bid and is compliant taking medication. He stated he had TIA in past but could not tell me about the episode. Per ED it seems 5 years ago he has similar episode. I have spoken with the primary team COMPONENT ASSEMBLER and the is seems that he notified her that the patient has a sick sinus syndrome and atrial fibrillation and he has a loop recorder placed by horticultural agent (Dr. Fischer) on 02/2021. Some of the work-up during this hospital visit consisted of: So far the patient has been afebrile. Initial blood pressure is 160/102, heart rate of 89, respiratory of 18 and pulse ox of 97% room air. Currently the blood pressure is normalized. CBC with diff is unremarkable. Chemistry panel is all call phosphatase 129 which is minimally elevated otherwise rest of Quita's panel is unremarkable. Panel is triglycerides 69, cholesterol 120, LDLs [address] HDL is 56[address] CT of the brain is reported as no acute intracranial abnormality. Maxillary sinusitis. No significant change. I personally reviewed the CT of the head and there is no acute subacute ischemia. There is no appreciable mass. Carotid duplex is reported as there is antegrade flow in the vertebral artery. There is elevated velocity left common carotid artery is suggest 50% stenosis. There is less than 50% stenosis in both internal carotid artery. Bilateral plaque formation. Review of Systems Review of system: The 12 point system was reviewed and apparent positive and negative per HPI. Past Medical History Past Medical History: Sleep Apnea/CPAP/BIPAP Additional Past Medical History / Comment(s): Pt believes he has ASTER but has been unable to complete sleep study-wakes up, irregular heart beat at times, R knee pain, diverticular disease. Kidney stones History of Any Multi-Drug Resistant Organisms: None Reported Past Surgical History: Appendectomy Additional Past Surgical History / Comment(s): 15-20 yrs ago pt states he had a cardiac cath which was normal (cannot recall where this was done), colonoscopy- normal. Past Anesthesia/Blood Transfusion Reactions: No Reported Reaction, Motion Sickness Past Psychological History: No Psychological Hx Reported Additional Psychological History / Comment(s): Pt resides alone. He is independent. 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 Smoking Status: Never smoker Past Alcohol Use History: Occasional Past Drug Use History: None Reported - Past Family History Father Family Medical History: Dementia Additional Family Medical History / Comment(s): Father at the age of 90yrs. Mother Family Medical History: CVA/TIA, Hypertension Additional Family Medical History / Comment(s): Irregular heart beat. Mother at the age of 89yrs. Medications and Allergies Home Medications Medication Instructions Recorded Confirmed Type Flecainide [Tambocor] 50 mg PO BID@0600,1800 01/31/19 08/16/22 History Ubidecarenone [Co Q-10] 300 mg PO DAILY 03/01/21 08/16/22 History Apixaban [Eliquis] 5 mg PO BID@0600,1800 08/16/22 08/16/22 History Atorvastatin [Lipitor] 40 mg PO DAILY@1800 08/16/22 08/16/22 History Allergies Allergy/AdvReac Type Severity Reaction Status Date / Time No Known Allergies Allergy Verified 08/16/22 19:07 Physical Examination - Vital Signs Vital Signs: Vital Signs Temp Pulse Pulse Resp BP BP Pulse Ox 08/17/22 10:19 98.6 F 71 17 113/69 97 08/17/22 10:07 69 17 08/17/22 10:06 98.6 F 71 17 113/69 97 08/17/22 08:48 95 08/17/22 08:15 98.2 F 76 18 116/79 97 08/17/22 02:03 98 F 68 18 119/69 95 08/16/22 21:28 98 F 76 18 126/74 94 L 08/16/22 20:32 86 16 158/87 08/16/22 18:28 81 18 141/79 97 08/16/22 17:58 84 18 139/77 97 08/16/22 17:39 98.1 F 84 16 160/82 98 08/16/22 17:28 82 18 135/68 98 08/16/22 17:13 80 18 140/80 99 08/16/22 16:58 83 18 99 08/16/22 15:13 98.0 F 89 18 168/102 97 Intake and Output 08/16/22 08/17/22 08/17/22 22:59 06:59 14:59 Intake Total 118 Balance 118 Intake: Oral 118 Other: # Voids 1 Weight 83.915 kg GENERAL: The patient is lying in bed and is not in acute distress. CHEST: The heart rate is regular rate rhythm. No murmurs to auscultation. LUNG: Clear to auscultation bilaterally no wheezing noted throughout. Not labored breathing. ABDOMEN/GI: Bowel sounds present in all 4 quadrants. No tenderness to palpation throughout. NEUROLOGICAL: Higher mental function: The patient is awake, alert, oriented to self, place and time. Patient is following commands. No aphasia and no neglect. Cranial nerves: The pupils are round, equal and reactive to light and accommodation. Visual stevens are full to confrontation throughout. Extraocular movement is intact no nystagmus is noted. Facial sensation is normal to touch throughout. The facial strength is normal throughout. Hearing is normal bilaterally to hand rub. Tongue is midline and moved [id number] without any difficulty. No dysarthria is noted. Shoulder shrug is normal bilaterally. Motor: The strength is 5 over 5 throughout. Normal tone and bulk. Cerebellum: Normal finger to nose bilaterally. Sensation: Sensation is normal to touch throughout. Reflexes (right/left): 2+ throughout. Plantars are downgoing bilaterally. Results - Laboratory Findings CBC and BMP: 08/16/22 16:48 08/16/22 16:48 Abnormal Lab Findings: Abnormal Labs 08/16/22 08/16/22 16:48 16:48 INR 1.2 H Alkaline Phosphatase 129 H Assessment and Plan Assessment: 6 is a 67-year-old gentleman who presented because of confusion. He stated that he was fixing the toilet and dropped the toilet and broke and unsure how he did that and then he was trying to head to replace the toilet but found himself near [facility] for unknown reason and does not recall exact details. Transient global amnesia: Unknown etiology History of possible TIA around 5 years ago (but does not know the details) Atrial fibrillation on eliquis History of sick sinus syndrome and had loop recorder placed in 2020 Plan: In addition to Eliquis 5mg 1 tab bid, I started ASA 81mg daily. On lipitor 40mg daily. I ordered a routine EEG, ammonia level, TSH, vitamin B-12 and folate level. If EEG reveals any epileptiform discharges or any seizure then I'll start him on antiseizure medication 2-D echo was ordered and is pending Every 4 hours neuro checks On cardiac monitoring PT OT and HUMAN RESOURCES RECORDS CLERK are consulted Recommend MRI of the brain with and without as an outpatient We'll defer the rest of the medical management to primary team Upon discharge the patient is to follow up with a neurologist within 1-2 weeks. For DVT prophylaxis the patient is on Eliquis. The plan was discussed with the patient and primary team N.P. Thank you for the consultation. Time with Patient: Greater than 30
--- NOTE | 2022-08-17 14:17 | EEG ---
ELECTROENCEPHALOGRAM REPORT CLINICAL HISTORY: This is a 67-year-old gentleman with altered mental status. The video EEG is obtained to evaluate for seizure epileptiform discharges. RELEVANT MEDICATION: The patient is not on any antiseizure medication. EEG TYPE: A routine 21-channel EEG is performed with video using the 10/20 electrode placement system. DESCRIPTION: Wakefulness is only obtained. During the awake state, the posterior-dominant rhythm consists of low to moderate voltage of 9.5 to 10.5 hertz activity that is well modulated, well sustained. There is no physiological stage 2 sleep architecture. There is no focal slowing. INTERICTAL AND ICTAL: None. ACTIVATION PROCEDURE: Photic stimulation did not evoke a posterior driving response. There is no abnormality during the photic stimulation. Hyperventilation is not performed. CLINICAL INTERPRETATION: This is a normal routine EEG. There is no focal slowing, epileptiform discharge or seizure on the EEG. A normal routine EEG does not rule out underlying epilepsy. Clinical correlation is recommended. RACHAEL / BELKIS: [id number] /
[2022-08-17 16:20] VITALS: BP 116/76; PULSE 69; TEMP 98.2
--- NOTE | 2022-08-17 16:44 | CA ---
Transthoracic Echo Report Name: Lencho Preston Age: 67 Gender: M : 1955 Exam Date: 08/17/2022 08:16 Exam Location: [facility] Ht (in): 70 Wt (lb): 190 Ordering Physician: Lencho Marie DO Attending/Referring Phys: Fusion Analyst Candis Barry RDCS Procedure CPT: Indications: Thrombus Cardiac Hx: Technical Quality: Fair Contrast 1: Total Dose (mL): Contrast 2: Total Dose (mL): MEASUREMENTS (Male / Female) Normal Values 2D ECHO LV Diastolic Diameter PLAX 5.1 cm 4.2 - 5.9 / 3.9 - 5.3 cm LV Systolic Diameter PLAX 3.3 cm IVS Diastolic Thickness 1.2 cm 0.6 - 1.0 / 0.6 - 0.9 cm LVPW Diastolic Thickness 1.5 cm 0.6 - 1.0 / 0.6 - 0.9 cm LV Relative Wall Thickness 0.5 RV Internal Dim ED PLAX 2.2 cm LA Volume 54.6 cm??? 18 - 58 / 22 - 52 cm??? M-MODE Aortic Root Diameter MM 3.6 cm AV Cusp Separation MM 2.4 cm DOPPLER AV Peak Velocity 110.3 cm/s AV Peak Gradient 4.9 mmHg LVOT Peak Velocity 90.7 cm/s LVOT Peak Gradient 3.3 mmHg MV Area PHT 4.6 cm??? Mitral E Point Velocity 54.7 cm/s Mitral A Point Velocity 65.6 cm/s Mitral E to A Ratio 0.8 MV Deceleration Time 164.8 ms TR Peak Velocity 207.5 cm/s TR Peak Gradient 17.2 mmHg FINDINGS Left Ventricle Mildly increased septal wall thickness. Left ventricular cavity size normal. Grade 1 diastolic dysfunction. Left ventricular ejection fraction is estimated at 55-60%. Right Ventricle Right ventricular hypertrophy. Normal right ventricular global systolic function. Right ventricular systolic pressure within normal limits. Right Atrium Normal right atrial size. Left Atrium No patent foramen ovale. Normal left atrial size. Mitral Valve Structurally normal mitral valve. Mild to moderate mitral regurgitation Aortic Valve Trileaflet aortic valve. No aortic regurgitation. No aortic stenosis. Tricuspid Valve Structurally normal tricuspid valve. Trace tricuspid regurgitation. Pulmonic Valve Mild pulmonic regurgitation. Pericardium Echo free space anterior to the right ventricle likely represents a fat pad. No pericardial or pleural effusion. Aorta Normal size aortic root and proximal ascending aorta. CONCLUSIONS Normal biventricular systolic function. Mild left ventricular hypertrophy [id number]-wa-[id number] mitral regurgitation No evidence of pericardial effusion Previewed by: Dr. Mark Morse MD (Electronically Signed) Final Date: 17 August 2022 16:43
--- NOTE | 2022-08-17 17:11 | P.HPIM ---
History of Present Illness H&P Date: 08/17/22 This is a pleasant 67 year old male with medical history of sleep apnea, diverticular disease, kidney stones, sick sinus syndrome and atrial fibrillation. Patient is anticoagulated with eliquis. He presents to the hospital with altered mental status. He was noted to be confused and forgetful with a last known well of around 1 pm on 08/16/2022. Patient states he was working in the bathroom and had broken the tank on his toilet. He drove himself to the store he states [employer] and when he got there he had no idea where he was or why he was there. He called his sister to come get him and was brought to the emergency room for further evaluation. Patient underwent cardiac work up last year and had a loop recorder implanted. He states compliance with his blood thinner and other cardiac medications. He reports occasional alcohol use, nothing daily, reports remote history of cigarette smoking over 50 years ago. 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 Initial work up reveals negative brain CT, chest xray showing no acute cardiopulmonary disease. Carotid doppler showing left common carotid artery with stenosis of 50%, less than 50% stenosis in bilateral ICA. Labs are unremarkable on admission with the exception of alkaline phosphatase 129, INR 1.2. Patient did have elevated blood pressure of 168/102 on admission which has improved to 116/79. Patient is being hydrated. He was given aspirin 325 mg in the EC. Neurology has been consulted for further evaluation and recommendations. Patient has been resumed on eliquis and also lipitor 40 mg. Echocardiogram and EEG are ordered. Patient is alert and oriented x 3 at the time of evaluation and denies focal weakness. Symptoms have completely resolved at this time. REVIEW OF SYSTEMS: CONSTITUTIONAL: No fever, no malaise, no fatigue. HEENT: No recent visual problems or hearing problems. Denied any sore throat. CARDIOVASCULAR: No chest pain, orthopnea, PND, no palpitations, no syncope. PULMONARY: No shortness of breath, no cough, no hemoptysis. GASTROINTESTINAL: No diarrhea, no nausea, no vomiting, no abdominal pain. NEUROLOGICAL: No headaches, no weakness, no numbness. HEMATOLOGICAL: Denies any bleeding or petechiae. GENITOURINARY: Denies any burning micturition, frequency, or urgency. MUSCULOSKELETAL/RHEUMATOLOGICAL: Denies any joint pain, swelling, or any muscle pain. ENDOCRINE: Denies any polyuria or polydipsia. The rest of the 14-point review of systems is negative PHYSICAL EXAMINATION: GENERAL: The patient is alert and oriented x3, not in any acute distress. Well developed, well nourished. HEENT: Pupils are round and equally reacting to light. EOMI. No scleral icterus. No conjunctival pallor. Normocephalic, atraumatic. No pharyngeal erythema. No thyromegaly. CARDIOVASCULAR: S1 and S2 present. No murmurs, rubs, or gallops. PULMONARY: Chest is clear to auscultation, no wheezing or crackles. ABDOMEN: Soft, nontender, nondistended, normoactive bowel sounds. No palpable organomegaly. MUSCULOSKELETAL: No joint swelling or deformity. EXTREMITIES: No cyanosis, clubbing, or pedal edema. NEUROLOGICAL: Gross neurological examination did not reveal any focal deficits. SKIN: No rashes. Assessment and Plan Assessment Altered mental status and transient global aphasia, rule out acute stroke vs. tia Hypertension, uncontrolled on admission Sick Sinus Syndrome with underlying atrial fibrillation Implantable loop recorder GI prophylaxis DVT: Anticoagulated with eliquis Plan Resume home medications including eliquis Neurology consultation Continue neuro checks EEG/Echocardiogram pending to complete neurological work up TSH and Ammonia level are ordered PT and OT are consulted. If patient is cleared by neurology and the rest of the work up is negative patient may be discharged home later today and recommend close follow up with neurology on discharge. The impression and plan of care has been dictated by Laura Augustine, Nurse Practitioner as directed. Dr. María MD I have performed a history and physical examination and medical decision making of this patient, discussed the same with the dictator, and agree with the dictators assessment and plan as written, documented as a scribe. Based on total visit time, I have performed more than 50% of this visit. Past Medical History Past Medical History: Sleep Apnea/CPAP/BIPAP Additional Past Medical History / Comment(s): Pt believes he has ASTER but has been unable to complete sleep study-wakes up, irregular heart beat at times, R knee pain, diverticular disease. Kidney stones History of Any Multi-Drug Resistant Organisms: None Reported Past Surgical History: Appendectomy Additional Past Surgical History / Comment(s): 15-20 yrs ago pt states he had a cardiac cath which was normal (cannot recall where this was done), colonoscopy- normal. Past Anesthesia/Blood Transfusion Reactions: No Reported Reaction, Motion Sickness Past Psychological History: No Psychological Hx Reported Additional Psychological History / Comment(s): Pt resides alone. He is independent. 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 Smoking Status: Never smoker Past Alcohol Use History: Occasional Past Drug Use History: None Reported - Past Family History Father Family Medical History: Dementia Additional Family Medical History / Comment(s): Father at the age of 90yrs. Mother Family Medical History: CVA/TIA, Hypertension Additional Family Medical History / Comment(s): Irregular heart beat. Mother at the age of 89yrs. Medications and Allergies Home Medications Medication Instructions Recorded Confirmed Type Flecainide [Tambocor] 50 mg PO BID@0600,1800 01/31/19 08/16/22 History Ubidecarenone [Co Q-10] 300 mg PO DAILY 03/01/21 08/16/22 History Apixaban [Eliquis] 5 mg PO BID@0600,1800 08/16/22 08/16/22 History Atorvastatin [Lipitor] 40 mg PO DAILY@1800 08/16/22 08/16/22 History Aspirin 81 mg PO DAILY #30 tab 08/17/22 Rx Allergies Allergy/AdvReac Type Severity Reaction Status Date / Time No Known Allergies Allergy Verified 08/16/22 19:07 Physical Exam Vitals: Vital Signs Temp Pulse Pulse Resp BP BP Pulse Ox 08/17/22 08:48 95 08/17/22 08:15 98.2 F 76 18 116/79 97 08/17/22 02:03 98 F 68 18 119/69 95 08/16/22 21:28 98 F 76 18 126/74 94 L 08/16/22 20:32 86 16 158/87 08/16/22 18:28 81 18 141/79 97 08/16/22 17:58 84 18 139/77 97 08/16/22 17:39 98.1 F 84 16 160/82 98 08/16/22 17:28 82 18 135/68 98 08/16/22 17:13 80 18 140/80 99 08/16/22 16:58 83 18 99 08/16/22 15:13 98.0 F 89 18 168/102 97 Intake and Output 08/16/22 08/17/22 08/17/22 22:59 06:59 14:59 Intake Total 118 Balance 118 Intake: Oral 118 Other: # Voids 1 Weight 83.915 kg Results CBC & Chem 7: 08/16/22 16:48 08/16/22 16:48 Labs: Abnormal Lab Results - Last 24 Hours (Table) 08/16/22 08/16/22 Range/Units 16:48 16:48 INR 1.2 H (<1.2) Alkaline Phosphatase 129 H (38-126) U/L Assessment and Plan Time with Patient: Greater than 30
[2022-08-17] MEDS ORDERED: ATORVASTATIN 40 MG TAB PO SCH (18:00)
[2022-08-17] MEDS ORDERED: APIXABAN 5 MG TAB PO SCH (18:00)
[2022-08-17] MEDS ORDERED: FLECAINIDE 50 MG TAB PO SCH (18:00)
[2022-08-18] MEDS ORDERED: ASPIRIN 81 MG PO SCH (09:00)
--- NOTE | 2022-08-18 15:38 | P.DS ---
Providers Date of admission: 08/16/22 19:20 Attending physician: Charlotte Lange Consults: 08/16/22 19:20 Consult Physician Urgent Consulting Provider: Bulmaro Benito Consult Reason/Comments: ams, eval for tis Do you want consulting provider notified?: Yes Primary care physician: Stated None Hospital Course: Final Diagnosis Altered mental status and transient global aphasia unknown etiology and resolved . Acute stroke has been ruled out. Hypertension, uncontrolled on admission Sick Sinus Syndrome with underlying atrial fibrillation Implantable loop recorder Reported history of prior TIA about 5 years ago Occasional alcohol use Discharge Disposition Patient is cleared medically for discharge. Recommend to follow up with neurology on discharge in [address] Eduardo has been recommend, patient may follow up with another neurologist as preferred. Patients mentation has improved and is alert x 3 with no focal deficits on examination. Global aphasia has resolved. Patient has been recommend by neurology to begin aspirin 81 mg daily in addition to eliquis 5 mg BID for primary stroke prevention and patient to also continue on lipitor 40 mg daily. Patient underwent full neurological wor k up and no radiographic or clinical evidence found for acute stroke. Patient has previously followed with Dr. Rizo who is now retired from the office and per patient he will be establishing with a different provider at the same office. Recommend follow up with cardiology as well. Hospital Course This is a pleasant 67 year old male with medical history of sleep apnea, diverticular disease, kidney stones, sick sinus syndrome and atrial fibrillation. Patient is anticoagulated with eliquis. He presents to the hospital with altered mental status. He was noted to be confused and forgetful with a last known well of around 1 pm on 08/16/2022. Patient states he was working in the bathroom and had broken the tank on his toilet. He drove himself to the store he states [email or web address] and when he got there he had no idea where he was or why he was there. He called his sister to come get him and was brought to the emergency room for further evaluation. Patient underwent cardiac work up last year and had a loop recorder implanted. He states compliance with his blood thinner and other cardiac medications. He reports occasional alcohol use, nothing daily, reports remote history of cigarette smoking over 50 years ago. He is retired from the [employer] force where he was employed for over 35 years. Initial work up reveals negative brain CT, chest xray showing no acute cardiopulmonary disease. Carotid doppler showing left common carotid artery with stenosis of 50%, less than 50% stenosis in bilateral ICA. Labs are unremarkable on admission with the exception of alkaline phosphatase 129, INR 1.2. Patient did have elevated blood pressure of 168/102 on admission which has improved to 116/79. Patient is being hydrated. He was given aspirin 325 mg in the EC. -Additional neurological work up includes echocardiogram showing normal systolic function, mild left ventricular hypertrophy, mild to moderate mitral regurgitation and no pericardial effusion. EEG is resulted as normal and routine. There is no focal, slowing, epileptiform discharge, or seizure on EEG. A normal routine EEG does not rule out underlying epilepsy. Patient had lipid panel done showing triglycerides of 69, cholesterol of 120, LDL of 50.1, and HDL of 56.00. Ammonia level less than 9, Vitamin B12 of 393, Folate 22.40, TSH 0.575. Neurology patients symptoms have resolved and he is cleared for discharge with the above mentioned recommendations. Please see medication reconciliation for a list of current medication. Thank you for allowing us to participate in the care of this patient. Please see medical H&P for additional information. The impression and plan of care has been dictated by Laura Augustine, Nurse Practitioner as directed. Dr. María MD I have performed a history and physical examination and medical decision making of this patient, discussed the same with the dictator, and agree with the dictators assessment and plan as written, documented as a scribe. Based on total visit time, I have performed more than 50% of this visit. Patient Condition at Discharge: Stable Plan - Discharge Summary New Discharge Prescriptions: New Aspirin 81 mg PO DAILY #30 tab Continue Flecainide [Tambocor] 50 mg PO BID@0600,1800 Apixaban [Eliquis] 5 mg PO BID@0600,1800 Ubidecarenone [Co Q-10] 300 mg PO DAILY Atorvastatin [Lipitor] 40 mg PO DAILY@1800 Discharge Medication List Flecainide [Tambocor] 50 mg PO BID@0600,1800 01/31/19 [History] Ubidecarenone [Co Q-10] 300 mg PO DAILY 03/01/21 [History] Apixaban [Eliquis] 5 mg PO BID@0600,1800 03/14/23 [History] Atorvastatin [Lipitor] 40 mg PO DAILY@1800 08/16/22 [History] Aspirin 81 mg PO DAILY #30 tab 08/17/22 [Rx] Follow up Appointment(s)/Referral(s): Reuben Schmidt MD [STAFF PHYSICIAN] - 2 Weeks Aníbal Eduardo MD [Medical Doctor] - 1 Week None,Stated [Primary Care Provider] - 1-2 days Patient Instructions/Handouts: Transient Ischemic Attack (DC) Activity/Diet/Wound Care/Special Instructions: Recommend to continue on aspirin 81 mg daily as well as eliquis, and lipitor for stroke prevention. Follow up and establish care with a primary provider on discharge Recommend for outpatient MRI with and without contrast per neurology this can be done as outpatient Follow up neurology on discharge in 1 to 2 weeks Discharge Disposition: HOME SELF-CARE
== END 2022-08-17 19:32 | disposition home or self-care (01) ==
LOC: EC 15:07 → 4SSUR 19:20
PROVIDERS: ADMIT Internal Medicine; ATTEND Internal Medicine
DX: G45.4 Transient global amnesia (principal); R41.82 Altered mental status, unspecified; R47.01 Aphasia; R03.0 Elevated blood-pressure reading, without diagnosis of hypertension; I65.23 Occlusion and stenosis of bilateral carotid arteries; I49.5 Sick sinus syndrome; I48.91 Unspecified atrial fibrillation; Z95.818 Presence of other cardiac implants and grafts; I10 Essential (primary) hypertension; Z86.73 Personal history of transient ischemic attack (TIA), and cerebral infarction without residual deficits; G47.30 Sleep apnea, unspecified; Z87.442 Personal history of urinary calculi; Z87.19 Personal history of other diseases of the digestive system; Z90.49 Acquired absence of other specified parts of digestive tract; Z98.890 Other specified postprocedural states; Z82.3 Family history of stroke; Z87.891 Personal history of nicotine dependence; Z79.899 Other long term (current) drug therapy; Z79.01 Long term (current) use of anticoagulants
CPT/HCPCS: 99285; 36415; 94760; 95816; 93005; 93306; 97161; 97165; 92523; 80061; 80053; 84443; 82607; 82140; 82550; 82746; 85025; 85610; 85730; 71046; 93880; 70450; G0378 ×2

== ENCOUNTER 2022-10-05 08:35 | Emergency (ER) | payer MEDICARE ==
[2022-10-05 08:44] VITALS: TEMP 98.1
[2022-10-05] MEDS ORDERED: SODIUM CHLORIDE 0.9% 1,000 ML IV STA (08:57)
[2022-10-05] MEDS ORDERED: MECLIZINE 12.5 MG TAB PO STA ×2 (08:57→10:41)
[2022-10-05] MEDS ORDERED: METOCLOPRAMIDE 5 MG/ML 2 ML VIAL IVP STA (08:58)
[2022-10-05 10:10] LABS: Basophils % (A) 0 %; Eosinophils # (A) 0.1 k/uL (0-0.7); Eosinophils % (A) 2 %; HGB 14.2 gm/dL (13.0-17.5); Lymphocytes # (A) 1.3 k/uL (1.0-4.8); Lymphocytes % (A) 19 %; MCH 31.8 pg (25.0-35.0); MCHC 32.9 g/dL (31.0-37.0); MCV 96.5 fL (80.0-100.0); Mean Platelet Volume 8.8; Monocytes # (A) 0.5 k/uL (0-1.0); Monocytes % (A) 7 %; Neutrophils # (A) 4.7 k/uL (1.3-7.7); Neutrophils % (A) 68 %; Platelet Count 184 k/uL (150-450); RBC 4.45 m/uL (4.30-5.90); RDW 12.4 % (11.5-15.5); WBC 6.9 k/uL (3.8-10.6)
--- NOTE | 2022-10-05 10:15 | ED ---
Dizziness HPI - General Chief Complaint: Dizziness Stated Complaint: dizziness Time Seen by Provider: 10/05/22 08:46 Source: patient, RN notes reviewed Mode of arrival: ambulatory Limitations: no limitations - History of Present Illness Initial Comments: 67-year-old male presents emergency Department with chief complaint of dizziness. Patient states he just feels off balance. He states his been having symptoms for 2 weeks but has worsened today. He states he felt an safe to drive. Patient states he isn't admitted the hospital for possible TIA, global amnesia [address] of TIA 5 years ago also. Patient is no complaint of focal weakness he has generalized weakness denies chest pain shortness of breath abdominal pain did have slight nausea. Patient states he had his ears cleaned out 2 weeks ago which made symptoms worse denies any pain with in his ear - Related Data Home Medications Medication Instructions Recorded Confirmed Flecainide [Tambocor] 50 mg PO BID@0600,1800 01/31/19 10/05/22 Ubidecarenone [Co Q-10] 300 mg PO DAILY 03/01/21 10/05/22 Apixaban [Eliquis] 5 mg PO BID@0600,1800 08/16/22 10/05/22 Atorvastatin [Lipitor] 40 mg PO DAILY@1800 08/16/22 10/05/22 Previous Rx's Medication Instructions Recorded Aspirin 81 mg PO DAILY #30 tab 08/17/22 Meclizine [Antivert] 25 mg PO TID PRN #15 tab 10/05/22 Allergies Allergy/AdvReac Type Severity Reaction Status Date / Time No Known Allergies Allergy Verified 10/05/22 09:08 Review of Systems ROS Statement: Those systems with pertinent positive or pertinent negative responses have been documented in the HPI. ROS Other: All systems not noted in ROS Statement are negative. Past Medical History Past Medical History: CVA/TIA, Sleep Apnea/CPAP/BIPAP Additional Past Medical History / Comment(s): Pt believes he has ASTER but has been unable to complete sleep study-wakes up, irregular heart beat at times, R knee pain, diverticular disease. Kidney stones History of Any Multi-Drug Resistant Organisms: None Reported Past Surgical History: Appendectomy Additional Past Surgical History / Comment(s): 15-20 yrs ago pt states he had a cardiac cath which was normal (cannot recall where this was done), colonoscopy- normal. Past Anesthesia/Blood Transfusion Reactions: No Reported Reaction, Motion Sickness Past Psychological History: No Psychological Hx Reported Smoking Status: Never smoker Past Alcohol Use History: Occasional Past Drug Use History: None Reported - Past Family History Father Family Medical History: Dementia Additional Family Medical History / Comment(s): Father at the age of 90yrs. Mother Family Medical History: CVA/TIA, Hypertension Additional Family Medical History / Comment(s): Irregular heart beat. Mother at the age of 89yrs. General Exam Limitations: no limitations General appearance: alert, in no apparent distress Head exam: Present: atraumatic, normocephalic, normal inspection Eye exam: Present: normal appearance, PERRL, EOMI. Absent: scleral icterus, conjunctival injection, periorbital swelling ENT exam: Present: normal exam, normal oropharynx, mucous membranes moist, TM's normal bilaterally Neck exam: Present: normal inspection, full ROM. Absent: tenderness, meningismu s, lymphadenopathy Respiratory exam: Present: normal lung sounds bilaterally. Absent: respiratory distress, wheezes, rales, rhonchi, stridor Cardiovascular Exam: Present: regular rate, normal rhythm, normal heart sounds. Absent: systolic murmur, diastolic murmur, rubs, gallop, clicks GI/Abdominal exam: Present: soft, normal bowel sounds. Absent: distended, tenderness, guarding, rebound, rigid Neurological exam: Present: alert, oriented X3, CN II-XII intact, reflexes normal, other (Finger to nose intact). Absent: motor sensory deficit Skin exam: Present: warm, dry, intact, normal color. Absent: rash Course Vital Signs 10/05/22 10/05/22 10/05/22 08:42 10:15 11:47 Temperature 98.1 F Pulse Rate 76 78 70 Respiratory 18 18 20 Rate Blood Pressure 125/86 113/73 110/70 O2 Sat by Pulse 99 99 98 Oximetry 10/05/22 12:23 Temperature Pulse Rate 68 Respiratory 16 Rate Blood Pressure 126/86 O2 Sat by Pulse 99 Oximetry Medical Decision Making - Medical Decision Making Was pt. sent in by a medical professional or institution (, PA, ORDER BUILDER, urgent care, hospital, or senior care...) When possible be specific @ -No Did you speak to anyone other than the patient for history (EMS, parent, family, police, friend...)? What history was obtained from this source @ -No Did you review nursing and triage notes (agree or disagree)? Why? @ -I reviewed and agree with nursing and triage notes Were old charts reviewed (outside hosp., previous admission, EMS record, old EKG, old radiological studies, urgent care reports/EKG's, senior care records)? Report findings @ -Reviewed prior ER visits, hospitalist, neurology evaluation for TIA Differential Diagnosis (chest pain, altered mental status, abdominal pain women, abdominal pain men, vaginal bleeding, weakness, fever, dyspnea, syncope, headache, dizziness, GI bleed, back pain, seizure, CVA, palpatations, mental h ealth, musculoskeletal)? @ -nDifferential Dyspnea: Coronary syndrome, arrhythmia, tamponade, asthma, COPD, pulmonary embolism, pneumonia, pneumothorax, pulmonary effusion, anaphylaxis, diabetic ketoacidosis, flailed chest, pulmonary contusion, diaphragmatic rupture, anemia, neur omuscular, this is not meant to be an all-inclusive list. icable EKG interpreted by me (3pts min.). @ -As above X-rays interpreted by me (1pt min.). @ -None done CT interpreted by me (1pt min.). @ -[CT of the brain shows no acute changes, no acute intracranial processes. U/S interpreted by me (1pt. min.). @ -None done What testing was considered but not performed or refused? (CT, X-rays, U/S, labs)? Why? @ -None What meds were considered but not given or refused? Why? @ -None Did you discuss the management of the patient with other professionals (bassem lazaro i.e. , PA, ORDER BUILDER, lab, RT, psych nurse, social worker aide, tennis coach, teacher, environmental protection officer, case maker)? Give summary @ -No Was smoking cessation discussed for >3mins.? @ -No Was critical care preformed (if so, how long)? @ -No Were there social determinants of health that impacted care today? How? (Homelessness, low income, unemployed, alcoholism, drug addiction, transpor tation, low edu. Level, literacy, decrease access to med. care, [facility], rehab)? @ -No Was there de-escalation of care discussed even if they declined (Discuss DNR or withdrawal of care, Hospice)? DNR status @ -No What co-morbidities impacted this encounter? (DM, HTN, Smoking, COPD, CAD, Cancer, CVA, ARF, Chemo, Hep., AIDS, mental health diagnosis, sleep apnea, morbid obesity)? @ -None Was patient admitted / discharged? Hospital course, mention meds given and route, prescriptions, significant lab abnormalities, going to OR and other pertinent info. @ -Discharge patient felt greatly improved after Antivert, Reglan workup was negative. I do believe the patient has had vertigo symptoms, Mnire's disease is possible patient will follow-up with ENT, discharge on Antivert. Undiagnosed new problem with uncertain prognosis? @ -No Drug Therapy requiring intensive monitoring for toxicity (Heparin, Nitro, In sulin, Cardizem)? @ -No Were any procedures done? @ -No Diagnosis/symptom? @ -Vertigo, Mnire's disease Acute, or Chronic, or Acute on Chronic? @ -Acute Uncomplicated (without systemic symptoms) or Complicated (systemic symptoms)? @ -[complicated Side effects of treatment? @ -No Exacerbation, Progression, or Severe Exacerbation? @ -No Poses a threat to life or bodily function? How? (Chest pain, [place], [place], pneumonia, PE, COPD, DKA, ARF, appy, cholecystitis, CVA, Diverticulitis, Homicidal, Suicidal, threat to staff... and all critical care pts) @ -No - Lab Data Result diagrams: 10/05/22 09:50 10/05/22 09:50 Lab Results 10/05/22 10/05/22 10/05/22 Range/Units 09:50 09:50 09:50 WBC 6.9 (3.8-10.6) k/uL RBC 4.45 (4.30-5.90) m/uL Hgb 14.2 (13.0-17.5) gm/dL Hct 43.0 (39.0-53.0) % MCV 96.5 (80.0-100.0) fL MCH 31.8 (25.0-35.0) pg MCHC 32.9 (31.0-37.0) g/dL RDW 12.4 (11.5-15.5) % Plt Count 184 (150-450) k/uL MPV 8.8 Neutrophils % 68 % Lymphocytes % 19 % Monocytes % 7 % Eosinophils % 2 % Basophils % 0 % Neutrophils # 4.7 (1.3-7.7) k/uL Lymphocytes # 1.3 (1.0-4.8) k/uL Monocytes # 0.5 (0-1.0) k/uL Eosinophils # 0.1 (0-0.7) k/uL Basophils # 0.0 (0-0.2) k/uL Sodium 140 (137-145) mmol/L Potassium 4.0 (3.5-5.1) mmol/L Chloride 108 H (98-107) mmol/L Carbon Dioxide 26 (22-30) mmol/L Anion Gap 6 mmol/L BUN 14 (9-20) mg/dL Creatinine 0.93 (0.66-1.25) mg/dL Est GFR (CKD-EPI)AfAm >90 (>60 ml/min/1.73 sqM) Est GFR (CKD-EPI)NonAf 84 (>60 ml/min/1.73 sqM) Glucose 84 (74-99) mg/dL Calcium 8.7 (8.4-10.2) mg/dL Total Bilirubin 0.8 (0.2-1.3) mg/dL AST 22 (17-59) U/L ALT 30 (4-49) U/L Alkaline Phosphatase 95 (38-126) U/L Troponin I <0.012 (0.000-0.034) ng/mL Total Protein 6.1 L (6.3-8.2) g/dL Albumin 3.4 L (3.5-5.0) g/dL Disposition Clinical Impression: Meniere disease, Vertigo Disposition: HOME SELF-CARE Condition: Stable Instructions (If sedation given, give patient instructions): Meniere Disease (ED) Additional Instructions: Please return to the Emergency Department if symptoms worsen or any other concerns. Prescriptions: Meclizine [Antivert] 25 mg PO TID PRN #15 tab PRN Reason: Vertigo Is patient prescribed a controlled substance at d/c from ED?: No Referrals: None,Stated [Primary Care Provider] - 1-2 days Hamilton Mcclelland MD [STAFF PHYSICIAN] - 1-2 days Time of Disposition: 11:57
[2022-10-05 10:19] LABS: ALT 30 U/L (4-49); AST 22 U/L (17-59); African American GFR (CKD) >90 (>60 ml/min/1.73 sqM); Albumin 3.4 g/dL (3.5-5.0); Alkaline Phosphatase 95 U/L (38-126); Anion Gap 6 mmol/L; Blood Urea Nitrogen 14 mg/dL (9-20); Calcium 8.7 mg/dL (8.4-10.2); Carbon Dioxide 26 mmol/L (22-30); Chloride 108 mmol/L (98-107); Glucose 84 mg/dL (74-99); Non-African American GFR(CKD) 84 (>60 ml/min/1.73 sqM); Sodium 140 mmol/L (137-145); Total Bilirubin 0.8 mg/dL (0.2-1.3); Total Protein 6.1 g/dL (6.3-8.2)
--- NOTE | 2022-10-05 11:34 | CT ---
EXAMINATION TYPE: CT brain wo con DATE OF EXAM: 10/05/2022 COMPARISON: 08/16/2022 HISTORY: 67-year-old male Dizziness TECHNIQUE: Examination was done in axial plane without intravenous contrast. Coronal and sagittal r econstructions performed. CT DLP: 1143.3 mGycm Automated exposure control for dose reduction was used. FINDINGS: There is no evidence of acute intracranial hemorrhage, acute ischemic changes, mass, mass-effect, or extra-axial fluid collection. There is no effacement of cerebral sulci or basal subarachnoid cister ns. There is no hydrocephalus. There is no midline shift. Yu-white matter distinction is preserv ed. 3.1 cm polyp or mucous retention cyst floor of the left maxillary sinus. Slight leftward nasal septal deviation. Paranasal sinuses and mastoid air cells are pneumatized. IMPRESSION: No acute intracranial abnormality seen. A 3.1 cm polyp or mucosal retention cyst within the floor the left maxillary sinus.
[2022-10-05 12:28] VITALS: BP 126/86; PULSE 68; RESP 16
== END 2022-10-05 12:20 | disposition home or self-care (01) ==
LOC: EC 08:35
DX: H81.09 Meniere's disease, unspecified ear (principal); G47.30 Sleep apnea, unspecified; Z86.73 Personal history of transient ischemic attack (TIA), and cerebral infarction without residual deficits; Z79.01 Long term (current) use of anticoagulants
CPT/HCPCS: 36415; 93005; 80053; 84484; 85025; 70450; 99284; 96374; 96361; J2765

== ENCOUNTER → 2023-04-20 | Outpatient (CLI) | payer MEDICARE ==
--- NOTE | 2023-04-20 14:07 | P.SLEEP ---
History of Present Illness DATE: 04/20/2023 CONSULTATION/NEW PATIENT EVALUATION HISTORY OF PRESENT ILLNESS/SLEEP-WAKE EVALUATION: 67 year old gentleman had been evaluated in the sleep center for possible obstructive sleep apnea hypopnea syndrome. SLEEP SCHEDULE: Usually sleep schedule from 9 PM to 6 AM 7 days a week. FALLING ASLEEP: Sometimes patient has difficulties with falling asleep, although no TV in bedroom. DURING SLEEP: Patient usually sleeps on the back position or in the chair with snoring and episodes of gasping for air and choking. Patient wakes up from sleep 3 times with nocturia. No history of hypnogogical hallucinations, sleep paralysis, or cataplexy. DURING THE DAY/WAKE STATE: In the morning patient wake up tired, falling asleep during the day, has problems with memory.. [place] sleepiness scale is 6. Usually patient doesn't take naps. PAST MEDICAL HISTORY: Paroxysmal atrial fibrillation, hyperlipidemia, 2 mini strokes, acid reflux, hyperlipidemia. PAST SURGICAL HISTORY: Appendectomy, insertion monitoring manager for arrhythmia. MEDICATIONS: Eliquis 5 mg twice a day, flecainide 50 mg twice a day, atorvastatin 40 mg once a day, aspirin 81 mg once a day. SOCIAL HISTORY: Negative for smoking, alcohol consumption occasional. FAMILY HISTORY: Heart problems, sleep apnea. REVIEW OF SYSTEMS: Snoring, multiple awakenings from sleep. No fevers. No double vision. No recent chest pain. No shortness of breath. No abdominal pain. No bleeding episodes. No blood in urine. No seizure episodes. PHYSICAL EXAMINATION: GENERAL: A pleasant patient without any distress. VITAL SIGNS: BP 131/71, HR 82, RR 14, weight 186.4 pounds, height 5 foot 10.5 inches, body mass index 26.3. HEENT: PERRLA, EOMI. Evaluation of oropharynx showed tongue protrudes midline, low position of soft palate Mallampati 4, retrognathia 3 mm. NECK: Supple. No JVD. Thyroid is not palpable. 15-3/4 inches in circumference. LUNGS: Clear to percussion and to auscultation. Good air exchange. No wheezing or rhonchi. HEART: S1, S2 regular. No murmurs, gallops or rubs. ABDOMEN: Soft and nontender. Bowel sounds are present. No organomegaly apprecia lenny. EXTREMITIES: No clubbing or cyanosis. BLIND CLEANER: Awake, alert, and oriented x3. Cranial nerves 2 to 7 intact. There is no fasciculation or atrophy noted. No focal deficits observed. ASSESSMENT: 1. Snoring, multiple awakenings from sleep with nocturia, extremely low position of soft palate Mallampati 4, retrognathia. Obstructive sleep apnea hypopnea syndrome. 2. History of paroxysmal atrial fibrillation. 3. Hyperlipidemia. 4. Acid reflux. 5 history of 2 mini strokes. 6 . Status post appendectomy. PLAN: 1. Polysomnography for evaluation of patient's breathing during sleep. 2. CPAP/BiPAP titration if sleep study confirms obstructive sleep apnea- hypopnea syndrome. 3. Preferable position during sleep on the side. 4. No driving if patient feels any sleepiness. Patient is aware of civil and criminal liability for unsafe driving. 5. Sleep hygiene with regular sleep time for at least 7.5-8 hours. 6. Watching weight. Thank you very much for referring this patient for consultation. Sincerely, Chip Theodore MD, PhD, FAASM. Diplomat of [employer] [employer], Sleep Medicine Board by [place] [employer] [employer] Share Holder of [facility] [place] Past Medical History Past Medical History: CVA/TIA, Sleep Apnea/CPAP/BIPAP Additional Past Medical History / Comment(s): Pt believes he has ASTER but has been unable to complete sleep study-wakes up, irregular heart beat at times, R knee pain, diverticular disease. Kidney stones History of Any Multi-Drug Resistant Organisms: None Reported Past Surgical History: Appendectomy Additional Past Surgical History / Comment(s): 15-20 yrs ago pt states he had a cardiac cath which was normal (cannot recall where this was done), colonoscopy- normal. Past Anesthesia/Blood Transfusion Reactions: No Reported Reaction, Motion Sickness Past Psychological History: No Psychological Hx Reported Smoking Status: Never smoker Past Alcohol Use History: Occasional Past Drug Use History: None Reported - Past Family History Father Family Medical History: Dementia Additional Family Medical History / Comment(s): Father at the age of 90yrs. Mother Family Medical History: CVA/TIA, Hypertension Additional Family Medical History / Comment(s): Irregular heart beat. Mother at the age of 89yrs. Medications and Allergies Home Medications Medication Instructions Recorded Confirmed Type Flecainide [Tambocor] 50 mg PO BID@0600,1800 01/31/19 10/05/22 History Ubidecarenone [Co Q-10] 300 mg PO DAILY 03/01/21 10/05/22 History Apixaban [Eliquis] 5 mg PO BID@0600,1800 08/16/22 10/05/22 History Atorvastatin [Lipitor] 40 mg PO DAILY@1800 08/16/22 10/05/22 History Aspirin 81 mg PO DAILY #30 tab 08/17/22 10/05/22 Rx Meclizine [Antivert] 25 mg PO TID PRN #15 tab 10/05/22 Rx Allergies Allergy/AdvReac Type Severity Reaction Status Date / Time No Known Allergies Allergy Verified 10/05/22 09:08 Sleep Note - Sleep Note Sleep Note: Temperature: Pulse Rate: Respiratory Rate: Blood Pressure: SpO2: Height: Weight: BMI: Neck Circumference:
== END ==
LOC: 3 N SLEEP 13:21
PROVIDERS: ATTEND Internal Medicine
DX: G47.33 Obstructive sleep apnea (adult) (pediatric) (principal); E78.5 Hyperlipidemia, unspecified; K21.9 Gastro-esophageal reflux disease without esophagitis; Z86.73 Personal history of transient ischemic attack (TIA), and cerebral infarction without residual deficits; I48.0 Paroxysmal atrial fibrillation; Z79.82 Long term (current) use of aspirin; Z79.01 Long term (current) use of anticoagulants
CPT/HCPCS: 99211

== ENCOUNTER 2023-06-08 19:26 | Outpatient (CLI) | payer MEDICARE ==
--- NOTE | 2023-06-14 13:38 | P.PCN ---
Description of Procedure: POLYSOMNOGRAPHY REPORT PROCEDURE(S)/DATE(S): Polysomnography on 06/08/2023 CLINICAL: Patient has been seen in the sleep center for evaluation of obstructive sleep apnea-hypopnea syndrome. Please see my consultation. Sleep study has been done for evaluation of patient breathing during the sleep. PROCEDURE: The standard montage for clinical polysomnography included the electroencephalogram, the electrooculogram, the mentalis surface electromyography and Lead II cardiography. The respiratory battery consisted of measurements of nasal/buccal air flow, pressure transducer measurements from nose, thoracic and/or abdominal effort and intercostal surface electromyography. Video monitoring has been done to check for any parasomnia events. Nocturnal oxyhemoglobin saturations were obtained by finger oximetry. Step-whitlock titration with positive airway pressure was utilized to control the respiratory events, if necessary. RESULTS: During the diagnostic sleep study sleep efficiency was significantly decreased to 62.5 %. Latency to sleep onset was borderline 25.5 min. Sleep architecture showed stage NI was increased to 10.2 %, Delta sleep was absent 0 %, REM sleep was extremely short 6.7 %. Respiratory channel showed 0 obstructive apneas, 0 mixed apneas, 0 central apne as, 7 hypopneas with lowest oxygen level 85%. Total apnea hypopnea index was 1.5. Heart rate was in the range between 61 and 68, average 63. EMG showed 47.0 periodic limb movements per hour with 0 micro-arousals per hour. IMPRESSIONS: 1. No significant respiratory abnormalities have been documented during the sleep study. 2. Significant periodic limb movements have been documented, but without significant amount of micro-arousals related to leg movements. 3. Snoring have been documented. Please see other impressions from consultation PLAN: 1. I will see patient for follow-up visit to explain results of the test and recommendations. 2. Please check iron profile including ferritin level. Low level of iron may increase the risk for periodic limb movements. 3. Sleep hygiene with regular time in bed for at least 7-1/2 hours. 4. No driving if feeling sleepiness. Thank you very much for allowing me to participate in the management of your patient. Sincerely, Chip Theodore MD, PhD, FAASM. Diplomat of [employer], Sleep Medicine Board by [employer] Service Rig Operator of [facility] [place]
== END 2023-06-09 05:10 | disposition home or self-care (01) ==
LOC: 3 N SLEEP 19:26
PROVIDERS: ATTEND Internal Medicine
DX: G47.33 Obstructive sleep apnea (adult) (pediatric) (principal); G47.61 Periodic limb movement disorder; R06.83 Snoring; Z79.82 Long term (current) use of aspirin
CPT/HCPCS: 95810

== ENCOUNTER → 2023-07-10 | Outpatient (CLI) | payer MEDICARE ==
--- NOTE | 2023-07-10 13:37 | P.PN ---
Subjective DATE: 07/10/2023 FOLLOW UP VISIT. Patient returned to sleep center for follow-up visit to discuss results of the sleep study and following plan. I explained results of sleep studies to the patient and family in details. During that test no significant respiratory abnormalities have been documented but patient did not sleep well, sleep ef ficiency significantly decreased to 62.5% and only 6.7% REM sleep was documented. Patient described that since sleep study was done she had 2 episodes of awakenings from sleep with gasping for air and palpitations. Sleep study showed 47.0 periodic limb movements per hour, but without any micro- arousals related to leg movements [place] sleepiness scale is 4. MEDICATIONS:1. Eliquis 5 mg twice a day 2. Flecainide 50 mg twice a day 3. Atorvastatin 40 mg once a day 4. Aspirin 81 mg once a day During physical exam: GENERAL: A pleasant patient without any distress. VITAL SIGNS: BP 137/75, HR 80, RR 16 , weight 187, temperature 98.2, oxygen saturation at room air 98% . HEENT: PERRLA, EOMI. position of soft palate Mallampati 4 NECK: Supple. No JVD. LUNGS: Clear to percussion and to auscultation. Good air exchange. No wheezing or rhonchi. HEART: S1, S2 regular. ABDOMEN: Soft and nontender. EXTREMITIES: No clubbing or cyanosis. SERVICE MANAGER: Awake, alert, and oriented x3. No focal deficit. Impressions: 1. No significant respiratory abnormalities by results of polysomnogram, but very low sleep efficiency and very short amount of REM sleep. Patient continued to have awakenings from sleep with episodes of palpitations. Possible obstructive sleep apnea hypopnea syndrome 2. Periodic limb movements .Significant amount of periodic leg movements 47.0 per hour but without micro-arousals have been documented during the sleep test. 3. History of paroxysmal atrial fibrillation. 4. Hyperlipidemia. 5. Acid reflux. 6. History of mini strokes. 7. Status post appendectomy. Plan: 1. Home sleep apnea test. 2. Sleep hygiene with regular time in bed for at least 8 hours. 3. Please check iron profile with ferritin level, low level of iron may increase risk for periodic limb movements 4. Precautions related to driving. No driving if feel any sleepiness. Patient is aware about civil and criminal liability for unsafe driving, promised to follow recommendations. 5. Following plan after reading home sleep apnea test. Thank you very much for allowing me to participate in the management of your patient. Chip Theodore MD, PhD, FAASM. Diplomat of [employer], Sleep Medicine Board by [employer] Bilingual Customer Service of [facility]
== END ==
LOC: 3 N SLEEP 13:01
PROVIDERS: ATTEND Internal Medicine
DX: G47.61 Periodic limb movement disorder (principal); G47.52 REM sleep behavior disorder; E78.5 Hyperlipidemia, unspecified; R00.2 Palpitations; K21.9 Gastro-esophageal reflux disease without esophagitis; I48.0 Paroxysmal atrial fibrillation; Z86.73 Personal history of transient ischemic attack (TIA), and cerebral infarction without residual deficits; Z79.01 Long term (current) use of anticoagulants; Z90.49 Acquired absence of other specified parts of digestive tract; Z79.899 Other long term (current) drug therapy; Z98.890 Other specified postprocedural states; Z79.82 Long term (current) use of aspirin
CPT/HCPCS: 99212

== ENCOUNTER → 2023-08-28 | Day surgery (SDC) | payer MEDICARE ==
[~2023-08-28] MED LIST changes: +APIXABAN 5 MG TAB PO SCH; +ASPIRIN 81 MG PO SCH; +ATORVASTATIN 40 MG TAB PO SCH; +CHOLECALCIFEROL 25 MCG (1000 IU) TABLET PO SCH; +FLECAINIDE 50 MG TAB PO SCH; +NON FORMULARY DRUG (Ubidecarenone [Co Q-10] 300 MG Capsule) PO SCH; +TAMSULOSIN 0.4 MG CAP.ER.24H PO SCH; +fentaNYL (PF) 50 MCG/ML 2 ML AMP ONE
[2023-08-28] MEDS: SODIUM CHLORIDE 0.9% 500 ML 500 ML IV ONE (08:37)
[2023-08-28 09:04] VITALS: TEMP 98.5
[2023-08-28] MEDS: BENZOCAINE SPRAY 1 CAN MUCOUS MEM ONE (09:20)
[2023-08-28] MEDS: MIDAZOLAM 2 MG/2 ML VIAL IVP ONE (09:35)
[2023-08-28] MEDS: fentaNYL (PF) 50 MCG/1 ML VIAL IVP ONE (09:35)
--- NOTE | 2023-08-28 09:57 | P.PCN ---
Date of Procedure: 08/28/23 Description of Procedure: Indication: Evaluation of mitral valve and left atrial appendage Procedure Description: After explaining the procedure to the patient, it's risk and complications, blood pressure, heart rate and O2 saturation were monitored. The throat was sprayed with Cetacaine. Patient received 2 mg intravenous Versed, 50 mcg intravenous fentanyl. The probe was introduced into the esophagus without difficulty. Images were obtained. Following that, the probe was removed. There was no immediate complication. Findings: Left atrial size is mildly dilated, left atrial appendage is normal. Left ventricular size and systolic function are normal. The aortic valve, tricuspid and pulmonic valve are normal. Mild prolapse of the posterior mitral valve leaflet was noted. Descending thoracic aorta appears to be normal. No pericardial effusion was noted. Contrast bubble study revealed no shunting across the interatrial septum. Doppler: Pulse wave and color Doppler were obtained, and revealed mild eccentric mitral regurgitation with mild tricuspid regurgitation. There was no shunting by color Doppler study. Conclusion: 1. Mildly dilated left atrium with normal appearance of the left atrial appendage 2. Normal apical size and systolic function 3. Mild prolapse of the posterior mitral valve leaflets with mild mitral regurgitation 4. Mild tricuspid regurgitation 5. No shunting across the interatrial septum Duration of sedation 14 minutes
[2023-08-28 11:34] VITALS: BP 118/71; PULSE 62; RESP 16
== END | disposition home or self-care (01) ==
LOC: CATHCVL 08:17
PROVIDERS: ATTEND Internal Medicine Interventional Cardiology
DX: I08.1 Rheumatic disorders of both mitral and tricuspid valves (principal); I48.19 Other persistent atrial fibrillation; I49.5 Sick sinus syndrome; E78.5 Hyperlipidemia, unspecified; Z86.73 Personal history of transient ischemic attack (TIA), and cerebral infarction without residual deficits; Z79.01 Long term (current) use of anticoagulants; Z79.899 Other long term (current) drug therapy; Z79.82 Long term (current) use of aspirin
CPT/HCPCS: 93312; 93320; 93325; J2250; J3010